=== PATIENT | male | born 1955 | race Caucasian/White ===

== ENCOUNTER 2017-07-13 12:12 | Inpatient (IN) ==
[2017-07-13] MEDS ORDERED: NITROGLYCERIN SL 0.4 MG TABLET SL PRN (12:47)
[2017-07-13] MEDS ORDERED: ALBUTEROL 2.5 MG/3 ML NEB RESP TX ONE (12:57)
[2017-07-13] MEDS: ALBUTEROL 2.5 MG/3 ML NEB RESP TX SCH (13:00)
[2017-07-13] MEDS ORDERED: niCARdipine INJ 25 MG in SODIUM CHLORIDE 0.9% 240 ML IV SCH (13:00)
[2017-07-13] MEDS ORDERED: hydrALAZINE 20 MG/1 ML VIAL IV STA (13:16)
[2017-07-13] MEDS ORDERED: hydrALAZINE 20 MG/1 ML VIAL ONE (13:19)
[2017-07-13 13:41] LABS: Basophils # 0.1 10*3/uL (0.0-0.2); Basophils % 0.7 % (0.0-0.8); Eosinophils # 0.1 10*3/uL (0.0-0.87); Eosinophils % 1.2 % (0.00-10.9); Hematocrit 39.4 VOL% (42.0-52.0); Hemoglobin 13.6 GM/DL (14.0-18.0); Immature Granulocytes % 1.8 %; Lymphocytes % 27.3 % (21.2-54.2); Mean Corpuscular HGB Conc 34.5 GM/DL (32-36); Mean Corpuscular Hemoglobin 31 PG (27-34); Mean Corpuscular Volume 89.1 FL (87-102); Mean Platelet Volume 9.1 FL (9.6-12.0); Monocytes # 1.2 10*3/uL (0.11-0.8); Monocytes % 11.1 % (1.7-12.7); Neutrophils # 6.3 10*3/uL (1.4-7.4); Neutrophils % 57.9 % (38.7-73.9); Platelet Count 268 T/CUMM (130-400); Red Blood Count 4.42 MC/CUMM (3.8-5.5); Red Cell Distribution Width 13.8 % (9.3-17.3); White Blood Count 10.8 T/CUMM (4-12)
--- NOTE | 2017-07-13 13:54 | XRay Report ---
XR chest 1V portable Indication: Shortness of breath Comparison: 16 October 2013 Findings: The heart and mediastinum are normal in size and configuration. The pulmonary vascularity is normal in caliber. No lung infiltrates, effusions, pneumothorax or other abnormality is demonstrated. Impression: Normal chest x-ray PROCEDURE INTERPRETED AT [facility] DEPARTMENT OF RADIOLOGY Final Report Signed by: Dr. Alfie Santana
[2017-07-13 14:04] LABS: Apearance,Urine CLEAR (Clear); Bilirubin,Urine Negative (Negative); Blood, Urine Negative (Negative); Glucose,Urine (UA) Negative (Negative); Ketones,Urine Negative (Negative); Mucus,Urine Occasional /LPF (Occasional); Nitrite,Urine Negative (Negative); Protein,Urine Negative; RBC,Urine <1 /HPF (0-4); Urine Color Yellow (Yellow); Urine Specific Gravity 1.006 (1.001-1.035); Urine Urobilinogen < 2.0 EU/DL (0.2-1.0); WBC,Urine <1 /HPF (0-6)
[2017-07-13 14:12] LABS: Alanine Aminotransferase 34 U/L (16-61); Albumin 3.6 G/DL (3.4-5.0); Alkaline Phosphatase 116 U/L (45-117); Aspartate Amino Transferase 29 U/L (0-37); Blood Urea Nitrogen 16 MG/DL (7-18); Calcium 9.5 MG/DL (8.5-10.1); Glucose 111 MG/DL (74-106); Osmolality,Calculated 278.5 MOS/KG (273-304); Potassium 4.5 MMOL/L (3.5-5.1); Sodium 139 MMOL/L (136-145); Troponin I Only < 0.015 NG/ML (0.00-0.045)
[2017-07-13] MEDS ORDERED: ZALEPLON 5 MG CAPSULE PO PRN (15:12)
[2017-07-13] MEDS ORDERED: MORPHINE 2 MG/1 ML SYRINGE IV PRN (15:12)
[2017-07-13] MEDS ORDERED: MAGNESIUM SULF RIDER 2 GM in PREMIX 1 EACH IV PRN (15:12)
[2017-07-13] MEDS ORDERED: ONDANSETRON 4 MG/2 ML VIAL IV PRN (15:12)
[2017-07-13] MEDS ORDERED: MAGNESIUM SULF RIDER 4 GM in PREMIX 1 EACH IV PRN (15:12)
[2017-07-13] MEDS ORDERED: POTASSIUM CHLORIDE 20 MEQ TABLET PO PRN (15:12)
--- NOTE | 2017-07-13 15:12 | Emergency Department Note ---
Manjit Flores Jessica J, am scribing for, and in the presence of, Osmar Love MD 12:50. Ivan Flores Doug C, MD, personally performed the services described in this documentation, ascribed by Lea Saravia in my presence, and it is both accurate and complete . Arrival - Arrival Chief Complaint: Shortness of Breath Stated Complaint: can't breathe ED Nursing Triage Note: chest pressure and SOB onset x 1 week - pt states that he has a HX of COPD Mode of Arrival: Ambulatory Source: Patient, Family, Old Records Reviewed, RN Notes Reviewed Time Seen by Provider: 07/13/17 12:45 - History of Present Illness HPI Narrative: Patient is a 59 white male presents emergency room complaining of chest pressure is been present off and on for the last week. Patient states it feels like an elephant is sitting on his chest and it finally got bad enough to come to the hospital today. States pain radiates to his left shoulder he does have shortness of breath with it but he states he always has shortness of breath. He does have previous history of atrial fibrillation and had cardioversion about 3 or 4 years ago. He denies any history of coronary artery disease but he certainly has peripheral vascular disease and has had fairly recent stenting of both lower extremities. Patient was noted to have extremely high blood pressure on arrival to the emergency room but he denies headache, nausea vomiting or diaphoresis. He still smokes 2 packs cigarettes a day. Onset (ago): week(s) Consistency: constant Severity: moderate Severity scale (1-10): 6 Quality: other (pressure) Allergies/Adverse Reactions: Allergies Allergy/AdvReac Type Severity Reaction Status Date / Time codeine Allergy Unknown Unknown/Unable Verified 04/24/15 15:59 to obtain Home Medications: Home Medications Medication Instructions Recorded Confirmed Type Albuterol Sulfate [Ventolin HFA] 2 puff INH Q4H PRN 04/24/15 07/13/17 History Budesonide/Formoterol 160-4.5 2 puff INH QAM 04/24/15 07/13/17 History [Symbicort 160-4.5] Metformin HCl 500 mg PO BID 04/24/15 07/13/17 History Montelukast Sodium 10 mg PO QAM 04/24/15 07/13/17 History Pantoprazole Tab [Protonix Tab] 40 mg PO QAM 04/24/15 07/13/17 History Theophylline ER Tab 200 mg PO QAM 04/24/15 07/13/17 History dilTIAZem HCl [Diltiazem ER] 180 mg PO QAM 04/24/15 07/13/17 History Albuterol Neb [Proventil Neb] 2.5 mg RESP [place] Q4H PRN 07/13/17 07/13/17 History Atorvastatin [Lipitor] 20 mg PO QAM 07/13/17 07/13/17 History Carvedilol [Coreg] 6.25 mg PO QAM 07/13/17 07/13/17 History Clopidogrel [Plavix] 75 mg PO QAM 07/13/17 07/13/17 History Digoxin 125 mcg PO QAM 07/13/17 07/13/17 History Febuxostat [Uloric] 80 mg PO QAM 07/13/17 07/13/17 History Magnesium Oxide [Magox 400] 400 mg PO TID 07/13/17 07/13/17 History guaiFENesin [Guaifenesin] 200 mg PO QAM 07/13/17 07/13/17 History Review of System - Review of System 12 point system: reviewed and no additional remarkable complaints except as stated - Review of System Constitutional: Absent: chills, diaphoresis, fever, weakness Eyes: Absent: vision change Head/Ears/Nose/Throat: Absent: nasal drainage Respiratory: Present: cough, respiratory distress, wheezing Cardiovascular: Present: chest pain (describing as pressure) Gastrointestinal: Absent: abdominal pain, nausea, vomiting, diarrhea Genitourinary male: Absent: urgency, hematuria Musculoskeletal: Present: back pain (pain under left shoulder blade). Absent: arm pain, lower back pain, leg pain, neck pain Skin: Absent: rash Neurological: Absent: headache, weakness, numbness Psychiatric: Absent: anxiety Hematological/Lymphatic: Absent: easy bleeding, easy bruising Medical,Surgical,& Family Hx - Medical History Cardio: History of: Cardiac Dysrhythmia (IRREGULAR RATE), Hypertension HEENT: History of: Eye Problem (GLASSES/CATARACTS) Endocrine: History of: Diabetes Mellitus (NIDDM), Dyslipidemia Respiratory: History of: Bronchitis, COPD (ON RESP [place]), Pneumonia, Respiratory Problems (FLU VAC FALL 2013/PNEUM VAC 2012) Gastrointestinal: History of: GERD Musculoskeletal: History of: Back/Neck Problems, Musculoskeletal Problems Other: History of: Cancer (MULTIPLE SKIN CANCERS) - Surgical History HEENT Surgeries: Surgical HX of: Eye Surgery (FOR CATARCT RT 04/25/15) Abdominal Surgeries: Surgical HX of: Appendectomy Orthopedic Surgeries: Surgical HX of;: Orthopedic Surgery (RT/LT RCR 2004/2009) , Spinal Surgery (NECK SURGERY X3 WITH METAL PLATE) - Family History Family History: Reports;: Family Hypertension (MOTHER), Family Stroke (MOTHER) - Social History Smoking Status: Current every day smoker Frequency of Alcohol Use: None Type of Drug Use: None Exam Vital Signs: Vital Signs Temperature 97.7 F 07/13/17 12:24 Pulse Rate 63 07/13/17 14:30 Respiratory Rate 18 07/13/17 14:30 Blood Pressure 170/75 07/13/17 14:30 O2 Sat by Pulse Oximetry 97 07/13/17 14:30 - General General appearance: alert, in no apparent distress - Head Head exam: Present: atraumatic, normocephalic - Eye Eye exam: Present: normal appearance, PERRL, EOMI - ENT ENT exam: Present: normal exam, normal oropharynx, mucous membranes moist. Absent: mucous membranes dry - Neck Neck exam: Present: normal inspection, full ROM, trachea midline - Chest Chest inspection: Present: normal inspection, symmetric chest wall rise - Respiratory Respiratory exam: Present: wheezes - Cardiovascular Cardiovascular exam: Present: regular rate, normal rhythm, normal heart sounds - Abdominal Exam Abdominal exam: Present: soft. Absent: distention, tenderness, bruit - Extremities Exam Extremities exam: Present: normal inspection, full ROM - Back Exam Back exam: Present: normal inspection, full ROM. Absent: tenderness - Neurological Exam Neurological exam: Present: alert, oriented X3, CN II-XII intact - Psychiatric Psychiatric exam: Present: normal affect, normal mood - Skin Skin exam: Present: warm, dry, intact, normal color Course Course Narrative: Patient's clinical presentation, laboratory and radiograph findings were discussed with Dr. Peter Mensah. Patient will be admitted to the telemetry unit and they will evaluate for probable left heart catheterization. Results - Labs CBC & BMP: 07/13/17 13:05 07/13/17 13:05 Lab Results: I have reviewed the patients labs Labs: Laboratory Tests 07/13/17 13:05 WBC 10.8 RBC 4.42 Hgb 13.6 L Hct 39.4 L Plt Count 268 MPV 9.1 L Millard # (Auto) 1.2 H Laboratory Tests 07/13/17 07/13/17 13:05 13:56 Sodium 139 Potassium 4.5 Chloride 105 Carbon Dioxide 28 BUN 16 Creatinine 1.00 GFR Calculation 90 Glucose 111 H Troponin I < 0.015 Albumin/Globulin Ratio 1.0 L Urine pH 6.0 Ur Specific [place] 1.006 Urine Urobilinogen < 2.0 H Urine RBC <1 Urine WBC <1 Laboratory Tests 07/13/17 13:05 B-Natriuretic Peptide 7 - EKG EKG results: interpreted by ERMPascual, sinus rhythm (69 bpm) - Impressions Patient is noted to have coving of the ST segment inferolateral leads probably related to digoxin. - Diagnostic Findings Procedure: Chest x-ray: report reviewed by me (Normal chest x-ray) Disposition Clinical Impression: Chest pain Case discussed with: patient, patient's family Disposition: Still a Patient Condition: Guarded Time of Disposition: 15:11
[2017-07-13] MEDS ORDERED: INFLUENZA VIRUS VACCINE 0.5 ML SYRINGE IM ONE (16:56)
[2017-07-13 17:29] LABS: Troponin I Only < 0.015 NG/ML (0.00-0.045)
[2017-07-13] MEDS: SODIUM CHLORIDE 0.45% 1,000 ML IV SCH (17:29)
--- NOTE | 2017-07-13 18:31 | Cardiology History & Physical ---
Assessment and Plan (1) COPD exacerbation Status: Acute Assessment and plan: Chronic lung disease and COPD now what really assessment exacerbation of COPD. Current Visit: Yes (2) Labile hypertension Status: Acute Assessment and plan: This is been a chronic problem. We will try slowly adjust his medications as it is questionable whether or not he has had some issues with losartan at a bigger dosing. Since this seem to at least were performed using a very low dose of losartan. Also use of as needed clonidine and then adjust his medications as needed. Current Visit: Yes (3) Heavy smoker Status: Chronic Assessment and plan: This is a chronic issue and unfortunately that exacerbates all of his other medical problems. Current Visit: Yes (4) Paroxysmal atrial fibrillation Status: Chronic Assessment and plan: No recent issue and is in sinus rhythm at the time. Current Visit: Yes (5) Claudication Status: Chronic Assessment and plan: Stable chronic issue. Probably has PID. Current Visit: Yes (6) Chest pain Status: Chronic Assessment and plan: His chest pain at this time seems to be more like a respiratory issue. Current Visit: Yes (7) Diabetes mellitus Status: Chronic Assessment and plan: Placed on sliding scale insulin continue his metformin at the time. 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 Potts is a 61 year old male who presented to the emergency room today mainly complaining of progressive shortness of breath recently. He says with this shortness of breath exacerbations have a little chest fullness heaviness. He was during the emergent have severely elevated blood pressure but he has had somewhat labile hypertension as an outpatient with difficulty controlling it. He states that losartan he thinks made his blood pressure dropped too much. He has had similar symptomatology when he had exacerbations of his lung issues. He uses bronchodilators and form of inhaler and nebulized therapy at home. He is followed by Dr. Rivera for his lungs. He has not had no prior history of coronary artery disease microinfarction. He denies any syncope or near syncope. He has had a echocardiogram carried out in the office February of this year with an ejection fraction 65% and some diastolic dysfunction and left ventricular hypertrophy. Has some mild mitral regurgitation tricuspid valve regurgitation and no gross evidence for elevated right-sided pressures. His ECG here reveals sinus rhythm with ST-T abnormalities inferior laterally which is similar to what he has had in the office previously. His troponin is nondetectable. Patient admitted via the emergency room for evaluation. This patient may indeed come to cardiac catheterization but I think our first thrust needs to be treatment of his hypertension and his lung issue before any catheterization is contemplated. Home Medications Medication Instructions Recorded Confirmed Type Albuterol Sulfate [Ventolin HFA] 2 puff INH Q4H PRN 04/24/15 07/13/17 History Budesonide/Formoterol 160-4.5 2 puff INH QAM 04/24/15 07/13/17 History [Symbicort 160-4.5] Metformin HCl 500 mg PO DAILY 04/24/15 07/13/17 History Montelukast Sodium 10 mg PO QAM 04/24/15 07/13/17 History Pantoprazole Tab [Protonix Tab] 40 mg PO QAM 04/24/15 07/13/17 History Theophylline ER Tab 200 mg PO QAM 04/24/15 07/13/17 History dilTIAZem HCl [Diltiazem ER] 180 mg PO QAM 04/24/15 07/13/17 History Albuterol Neb [Proventil Neb] 2.5 mg RESP [place] Q4H PRN 07/13/17 07/13/17 History Atorvastatin [Lipitor] 20 mg PO QAM 07/13/17 07/13/17 History Carvedilol [Coreg] 6.25 mg PO QAM 07/13/17 07/13/17 History Clopidogrel [Plavix] 75 mg PO QAM 07/13/17 07/13/17 History Digoxin 125 mcg PO QAM 07/13/17 07/13/17 History Febuxostat [Uloric] 80 mg PO QAM 07/13/17 07/13/17 History Magnesium Oxide [Magox 400] 400 mg PO DAILY 07/13/17 07/13/17 History guaiFENesin [Guaifenesin] 200 mg PO QAM 07/13/17 07/13/17 History Allergies Allergy/AdvReac Type Severity Reaction Status Date / Time codeine Allergy Unknown Unknown/Unable Verified 04/24/15 15:59 to obtain Review of systems: Constitutional: Denies anorexia, chills, fatigue, fever, frequent falls, night sweats, weight gain, weight loss Eyes: Denies visual changes or loss of vision Ears: Denies decreased hearing, vertigo Nose, mouth and throat: Denies dysphagia, epistaxis, headaches, neck pain, tongue swelling, Neck: Denies thyromegaly or masses. No stiffness. Cardiovascular: as per HPI Respiratory: He is a chronic heavy smoker and has had recent dyspnea dyspnea on exertion coughing congestion. He has had exacerbations of COPD previously. Gastrointestinal: Denies abdominal pain, constipation, dyspepsia, dysphagia, hematemesis, hematochezia, melena, nausea, vomiting Genitourinary: Denies dysuria, hematuria, nocturia Musculoskeletal: Denies arthralgias, joint swelling, muscle weakness, myalgias Neurological: denies abnormal gait, abnormal speech, confusion, convulsions, frequent falls, headaches, memory loss, syncope Psychiatric: Denies anxiety, confusion, depression Endocrine: Denies cold intolerance, fatigue, heat intolerance Hematologic/Lymphatic: Denies easy bleeding, easy bruising Dermatologic: Denies Rash, itching, shingles but has a lot of chronic solar skin changes and has stitches in his right forearm where he has had skin cancers already removed. Medical,Surgical,& Family Hx - Medical History Cardio: History of: Cardiac Dysrhythmia (IRREGULAR RATE), Hypertension HEENT: History of: Eye Problem (GLASSES/CATARACTS) Endocrine: History of: Diabetes Mellitus (NIDDM), Dyslipidemia Respiratory: History of: Bronchitis, COPD (ON RESP [place]), Pneumonia, Respiratory Problems (FLU VAC FALL 2013/PNEUM VAC 2012) Gastrointestinal: History of: GERD Musculoskeletal: History of: Back/Neck Problems, Musculoskeletal Problems Other: History of: Cancer (MULTIPLE SKIN CANCERS) - Surgical History Cardiac Surgeries: Patient Denies: Cardiac Catheterization HEENT Surgeries: Surgical HX of: Eye Surgery (FOR CATARCT RT 04/25/15) Abdominal Surgeries: Surgical HX of: Appendectomy Orthopedic Surgeries: Surgical HX of;: Orthopedic Surgery (RT/LT RCR 2004/2009) , Spinal Surgery (NECK SURGERY X3 WITH METAL PLATE) - Family History Family History: Reports;: Family Hypertension (MOTHER), Family Stroke (MOTHER) - Social History Smoking Status: Current every day smoker Have you smoked in the last 12 months: Yes Time spent discussing smoking cessation with patient: 3 to 10 minutes Frequency of Alcohol Use: Frequently Type of Drug Use: None Marital Status: Lives With:: Spouse Functional capacity: independent ambulation Cardiology Physical Exam - Constitutional Vitals: Vital Signs Temp Pulse Resp BP Pulse Ox 97.2 F L 73 18 179/77 95 07/13/17 16:57 07/13/17 16:57 07/13/17 16:57 07/13/17 16:57 07/13/17 17:13 Intake and Output 07/13/17 07/13/17 07/13/17 07:59 15:59 23:59 Other: Weight 79.832 kg 79.379 kg Patient Weight 07/13/17 23:59 Weight 79.379 kg Exam: General appearance: normal weight, no acute distress Head exam: normal inspection, atraumatic Eye exam: Pupils are equal and reactive. EOMI. There is no trauma. Ear exam: Anatomically normal. Normal auditory acuity to conversation. Oral exam: No significant oral lesions. Neck exam: normal inspection no JVD. No carotid bruit. Trachea is in midline. Respiratory exam: Patient distending the room has audible wheezing. Auscultation is diffuse coarse wheezing rhonchi. Cardiovascular exam: Distant heart sounds but regular rate and rhythm, no murmur or gallop or rub. No precordial lift. No bruits over the major arteries. Chest wall/torso: Anatomically normal. No tenderness, deformity Peripheral Pulses: 2+ radial pulses with diminished foot pulses. GI/Abdominal exam: normal bowel sounds, soft and nontender, no abdominal bruits or pulsatile masses. Musculoskeletal/Extremities exam: normal inspection without edema or cyanosis. No deformities or trauma. Neurological exam: alert, oriented X3. There is no gross neurologic deficits. Psychiatric exam: normal affect, normal mood. Cognitive function is grossly intact. Skin exam: Patient has some chronic solar skin changes. He has stitches in his right arm from skin cancer removed recently. Result/EKG - Labs CBC & BMP: 07/13/17 13:05 07/13/17 13:05 Lab Results: I have reviewed the past 24 hour labs Labs: Laboratory Results - last 24 hr 07/13/17 07/13/17 07/13/17 13:05 13:05 13:05 WBC 10.8 RBC 4.42 Hgb 13.6 L Hct 39.4 L MCV 89.1 MCH 31 MCHC 34.5 RDW 13.8 Plt Count 268 MPV 9.1 L Neut % (Auto) 57.9 Lymph % (Auto) 27.3 Sumner % (Auto) 11.1 Eos % (Auto) 1.2 Baso % (Auto) 0.7 Neut # (Auto) 6.3 Lymph # (Auto) 3.0 [place]ner # (Auto) 1.2 H Eos # (Auto) 0.1 Baso # (Auto) 0.1 Immature Gran % 1.8 Nucleated RBC % 0.0 Immature Gran # 0.20 Nucleated RBCs # 0.00 Immature Plt Fraction 0.0 Sodium 139 Potassium 4.5 Chloride 105 Carbon Dioxide 28 Anion Gap 10.5 BUN 16 Creatinine 1.00 GFR Calculation 90 BUN/Creatinine Ratio 16.00 Glucose 111 H Calculated Osmolality 278.5 Calcium 9.5 Total Bilirubin 0.60 AST 29 ALT 34 Alkaline Phosphatase 116 Total Creatine Kinase CK-MB (CK-2) Troponin I < 0.015 B-Natriuretic Peptide 7 Total Protein 7.0 Albumin 3.6 Globulin 3.4 Albumin/Globulin Ratio 1.0 L Urine Color Urine Appearance Urine pH Ur Specific [place] Urine Protein Urine Glucose (UA) Urine Ketones Urine Blood Urine Nitrate Urine Bilirubin Urine Urobilinogen Urine Leukocytes Urine RBC Urine WBC Urine Mucus Ur Culture Indicated? 07/13/17 07/13/17 13:56 16:50 WBC RBC Hgb Hct MCV MCH MCHC RDW Plt Count MPV Neut % (Auto) Lymph % (Auto) [place] % (Auto) Eos % (Auto) Baso % (Auto) Neut # (Auto) Lymph # (Auto) [place] # (Auto) Eos # (Auto) Baso # (Auto) Immature Gran % Nucleated RBC % Immature Gran # Nucleated RBCs # Immature Plt Fraction Sodium Potassium Chloride Carbon Dioxide Anion Gap BUN Creatinine GFR Calculation BUN/Creatinine Ratio Glucose Calculated Osmolality Calcium Total Bilirubin AST ALT Alkaline Phosphatase Total Creatine Kinase 69 CK-MB (CK-2) < 1.0 Troponin I < 0.015 B-Natriuretic Peptide Total Protein Albumin Globulin Albumin/Globulin Ratio Urine Color Yellow Urine Appearance Clear Urine pH 6.0 Ur Specific [place] 1.006 Urine Protein Negative Urine Glucose (UA) Negative Urine Ketones Negative Urine Blood Negative Urine Nitrate Negative Urine Bilirubin Negative Urine Urobilinogen < 2.0 H Urine Leukocytes Negative Urine RBC <1 Urine WBC <1 Urine Mucus Occasional Ur Culture Indicated? Not indicated - Impressions Impressions: ECG was sinus rhythm with lateral ST abnormalities consistent with possible ischemia but they are unchanged from prior ECGs. There is no acute changes.
[2017-07-13] MEDS ORDERED: DEXTROSE 50% 25 GM/50 ML SYRINGE IV PRN (18:40)
[2017-07-13] MEDS ORDERED: GLUCAGON 1 MG VIAL IM PRN (18:40)
[2017-07-13] MEDS ORDERED: methylPREDNISolone SOD SUC 125 MG/2 ML VIAL IV ONE (18:44)
[2017-07-13] MEDS ORDERED: ALBUTEROL 2.5 MG/3 ML NEB RESP TX PRN (19:00)
[2017-07-13] MEDS: LEVALBUTEROL 1.25 MG/3 ML NEB RESP TX SCH ×2 (19:04→22:53)
[2017-07-13] MEDS ORDERED: MAGNESIUM OXIDE 400 MG TABLET PO SCH (21:00)
[2017-07-13] MEDS ORDERED: CARVEDILOL 6.25 MG TABLET PO SCH (21:00)
[2017-07-13 21:03] LABS: Troponin I Only < 0.015 NG/ML (0.00-0.045)
[2017-07-13] MEDS: INSULIN REGULAR 100 UNIT/ML SUBCUT SCH (21:10)
[2017-07-13] MEDS: ROSUVASTATIN 20 MG TABLET PO SCH (21:10)
[2017-07-13] MEDS: LEVOFLOXACIN INJ 500 MG in PREMIX 1 EACH IV SCH (21:24)
--- NOTE | 2017-07-13 22:30 | Order Completion Report ---
See report scanned to EMR
[2017-07-13 23:58] LABS: Troponin I Only < 0.015 NG/ML (0.00-0.045)
[2017-07-14] MEDS: LEVALBUTEROL 1.25 MG/3 ML NEB RESP TX SCH ×6 (02:54→23:38)
[2017-07-14] MEDS: SODIUM CHLORIDE 0.45% 1,000 ML IV SCH ×3 (05:24→19:57)
[2017-07-14] MEDS: cloNIDine 0.1 MG TABLET PO PRN ×3 (05:54→20:24)
[2017-07-14 06:35] LABS: Calcium 9.2 MG/DL (8.5-10.1); Osmolality,Calculated 287.5 MOS/KG (273-304); Potassium 4.3 MMOL/L (3.5-5.1)
--- NOTE | 2017-07-14 07:06 | Order Completion Report ---
See report scanned to EMR
[2017-07-14] MEDS ORDERED: DIGOXIN 0.125 MG TABLET PO SCH (09:00)
[2017-07-14] MEDS: DILTIAZEM CD 180 MG CAPSULE PO SCH (09:07)
[2017-07-14] MEDS: ASPIRIN EC 325 MG TABLET PO SCH (09:07)
[2017-07-14] MEDS: INSULIN REGULAR 100 UNIT/ML SUBCUT SCH ×4 (09:08→20:24)
[2017-07-14] MEDS: METOPROLOL SUCCINATE XL 25 MG TABLET PO SCH (09:08)
[2017-07-14] MEDS: BUDESONIDE/FORMOTEROL 160-4.5 INHALER 6 GM INH SCH (09:10)
--- NOTE | 2017-07-14 09:34 | Order Completion Report ---
See report scanned to EMR
--- NOTE | 2017-07-14 11:58 | Pulmonology Consult Note ---
History of Present Illness Chief complaint: COPD with acute exacerbation. Pulmonary nodule. History of present illness: Main Ghosh, [facility], acting as scribe for Dr. Riccardo Ryan Mr. Potts is a 61-year-old white male who we have been asked to see in pulmonary consultation for evaluation and treatment. The request for consultation was made by Dr. Mensah. Mr. Potts was in his usual state of health until approximately the past week. At that time he had acute onset "chest pressure" that has been waxing and waning during that time. Yesterday, the patient presented to [facility] the same complaints with increased shortness of breath and dyspnea on exertion. He stated it "felt like an elephant sitting on my chest". He states that this is how is just always feels when he is in a COPD exacerbation, but he was also noted to be markedly hypertensive with a blood pressure of 248/119. There was some question as to whether or not he was experiencing cardiac angina, so he was therefore admitted to the cardiology service. He was seen today along with his . He does report increased shortness of breath and dyspnea on exertion as above. He reports a "fullness" in his chest that worsens with exertion, but he cannot definitely say that this is cardiac pain. He denies dysphasia or reflux. There is been no change in bowel or bladder habits. No TIA symptoms or syncope. No bleeding from any site, specifically no hemoptysis. He does have a known pulmonary nodule that was seen on CT scan in February 2017 and he is actually scheduled for follow-up CT of the chest 07/26/2017. All other systems were reviewed and were negative. Allergies: Codeine. Possibly Bactrim DS. Home medications: See list Immunizations: Flu vaccine was given 08/26/2016. Pneumovax was given 2011. H1N1 was given in 2009. Past medical history: October 2013 [facility] hospitalization for right middle lung pneumonia. [facility] hospitalization 09/09/2011 for right lower lung bacterial pneumonia. Multi lobar pneumonia. COPD. Bronchospastic disease. Gout. Hyperlipidemia. The patient has had 2 neck surgeries and hernia repair. Diabetes mellitus. The patient had bypass to both legs in July [address] [place] [address] Stone. 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 On 03/01/2016 he said he smoked 1-2 packs of cigarettes per day. Today, he states this is still been true but "I apparently quit yesterday". In the past he has stated that he drinks 4-5 ounces of gin and Cokes per day. He is . He has 5 children, two by his present , and he has 2 grandchildren. Family history: Positive for high blood pressure Procedures: E scope with Dr. Lim 09/18/2011 which showed 99% healing of a giant gastric ulcer. The scope 08/07/[address] Lim which showed 2 large gastric ulcers with vascular bleeding. February [address] Almaguer showed an EF of 65%, some diastolic dysfunction, and left ventricular hypertrophy. There was also mild mitral regurgitation, tricuspid valve regurgitation, but no gross evidence of elevated right-sided pressures. Laboratory: White count is 10,800 with 57.9% segs, 27.3% lymphs, 11.1% monos; H& H 13.6/39.4 with normal indices and normal red blood cell distribution width; platelet count 268,000; creatinine initially 1.00 and now 1.10, BUN 22, sodium 139, potassium 4.3, calcium 9.2, albumin 3.6, total protein 7.0; BNP 7; cardiac isoenzymes are negative; liver function test are normal; urinalysis showed no evidence of infection Chest x-ray. Done 07/13/2017. My interpretation. Heart size is normal. Pulmonary artery size is normal. The mediastinum is not enlarged. There is no hilar adenopathy. Lung morillo are clear without masses, infiltrates, or pulmonary edema. Home Medications Medication Instructions Recorded Confirmed Type Albuterol Sulfate [Ventolin HFA] 2 puff INH Q4H PRN 04/24/15 07/13/17 History Budesonide/Formoterol 160-4.5 2 puff INH QAM 04/24/15 07/13/17 History [Symbicort 160-4.5] Metformin HCl 500 mg PO DAILY 04/24/15 07/13/17 History Montelukast Sodium 10 mg PO QAM 04/24/15 07/13/17 History Pantoprazole Tab [Protonix Tab] 40 mg PO QAM 04/24/15 07/13/17 History Theophylline ER Tab 200 mg PO QAM 04/24/15 07/13/17 History dilTIAZem HCl [Diltiazem ER] 180 mg PO QAM 04/24/15 07/13/17 History Albuterol Neb [Proventil Neb] 2.5 mg RESP TX Q4H PRN 07/13/17 07/13/17 History Atorvastatin [Lipitor] 20 mg PO QAM 07/13/17 07/13/17 History Carvedilol [Coreg] 6.25 mg PO QAM 07/13/17 07/13/17 History Clopidogrel [Plavix] 75 mg PO QAM 07/13/17 07/13/17 History Digoxin 125 mcg PO QAM 07/13/17 07/13/17 History Febuxostat [Uloric] 80 mg PO QAM 07/13/17 07/13/17 History Magnesium Oxide [Magox 400] 400 mg PO DAILY 07/13/17 07/13/17 History guaiFENesin [Guaifenesin] 200 mg PO QAM 07/13/17 07/13/17 History Allergies Allergy/AdvReac Type Severity Reaction Status Date / Time codeine Allergy Unknown Unknown/Unable Verified 04/24/15 15:59 to obtain Exam (Pulmonay) H&P - Constitutional Vitals: Period Temp Pulse Resp BP Sys/Bass Pulse Ox Last 24 Hr 97.2 F-98.2 F 61-96 13-20 162-248/75-119 93-100 Exam: Psych: Oriented x 3; a pleasant and cooperative patient HEENT: Pupils, irises, sclera, conjunctiva, and eyelids are normal. The face is symmetrical without rash or masses. Lips, tongue, buccal mucosa, soft and hard palates, and pharynx are WNL Neck: Symmetrical. Thyroid was not palpated. Lymphatics: No submandibular, cervical, or supraclavicular adenopathy Chest: Symmetrical with large airway and high-pitched peripheral wheezes and associated large airway congestion CV: Regular without murmur, rub, or gallop Arterial: Carotids with a good upstroke. There is no bruit. Upper extremity pulses are palpable. Lower extremity pulses are non-palpable, but I see no evidence of ischemia. Venous: Exam of the neck, upper, and lower extremities is normal Abd: No appreciable organomegaly, masses, tenderness, or bruit; Bowel sounds are positive 4; The aorta was not palpated /Rectal: Deferred Extremities: No clubbing, cyanosis, edema, or obvious DVT Skin: No cancerous or infectious lesions of the exposed, examined skin; the perineal area was not examined M/S: Age appropriate loss of the normal curvature of the cervical, thoracic, and lumbar spine; previous shoulder surgery with some mild decreased range of motion in the left shoulder that has gradually gotten better over time Neurological: Cranial nerves are intact, Long tract motor function is intact; Sensory exam was not done; gait was not tested. The remainder of the exam was noncontributory. Impression: #1: Acute exacerbation of COPD. Note, the patient states that his breathing is much improved since admission. #2: COPD/asthma #3: Uncontrolled hypertension #4: Tobacco abuse #5: Hyperlipidemia #6: History of gout #7: Atrial fibrillation #8: Chest pain #9: See past history Plan: #1: We agree with present medications #2: We will proceed with CT of the chest with contrast to reevaluate previously noted pulmonary nodule #3: Check sputum for Gram stain, culture and sensitivity #4: See orders We appreciate this consult and will follow along with you. Medical,Surgical,& Family Hx - Medical History Cardio: History of: Cardiac Dysrhythmia (IRREGULAR RATE), Hypertension HEENT: History of: Eye Problem (GLASSES/CATARACTS) Endocrine: History of: Diabetes Mellitus (NIDDM), Dyslipidemia Respiratory: History of: Bronchitis, COPD (ON RESP [place]), Pneumonia, Respiratory Problems (FLU VAC FALL 2013/PNEUM VAC 2012) Gastrointestinal: History of: GERD Musculoskeletal: History of: Back/Neck Problems, Musculoskeletal Problems Other: History of: Cancer (MULTIPLE SKIN CANCERS) - Surgical History Cardiac Surgeries: Patient Denies: Cardiac Catheterization HEENT Surgeries: Surgical HX of: Eye Surgery (FOR CATARCT RT 04/25/15) Abdominal Surgeries: Surgical HX of: Appendectomy Orthopedic Surgeries: Surgical HX of;: Orthopedic Surgery (RT/LT RCR 2004/2009) , Spinal Surgery (NECK SURGERY X3 WITH METAL PLATE) - Family History Family History: Reports;: Family Hypertension (MOTHER), Family Stroke (MOTHER) - Social History Smoking Status: Current every day smoker Frequency of Alcohol Use: Frequently Type of Drug Use: None Results - Labs CBC & BMP: 07/13/17 13:05 07/14/17 05:28
[2017-07-14] MEDS: FEBUXOSTAT 80 MG TABLET PO SCH (12:33)
[2017-07-14] MEDS: MONTELUKAST 10 MG TABLET PO SCH (12:33)
[2017-07-14] MEDS: MAGNESIUM OXIDE 400 MG TABLET PO SCH (12:33)
[2017-07-14] MEDS: CLOPIDOGREL 75 MG TABLET PO SCH (12:34)
[2017-07-14] MEDS: PANTOPRAZOLE 40 MG TABLET PO SCH (12:34)
[2017-07-14] MEDS: THEOPHYLLINE ER (24 HR) 200 MG CAPSULE PO SCH (12:34)
--- NOTE | 2017-07-14 13:23 | Order Completion Report ---
See report scanned to EMR
--- NOTE | 2017-07-14 14:03 | CT Report ---
Exam: CT chest with intravenous contrast Exam date: 07/14/2017 1:42 PM Clinical History: 61 years,Male, pulmonary nodule, follow-up Technique: Axial computed tomography images of the chest with intravenous contrast. The CT exam was performed using one or more of the following dose reduction techniques: Automated exposure control, adjustment of the mA and/or kV according to patient size, or use of iterative reconstruction technique. Contrast: 100 mL of Omnipaque 350 administered intravenously. Comparison: February 28, 2017 Findings: Lungs: Mild paraseptal bullous changes within the lung apices. Diffuse thickening and volume loss along the right minor fissure. Interval resolution of the patchy parenchymal nodular and groundglass opacities within the right upper and middle lobes.. Pleural spaces: No pneumothorax. No significant effusion Heart: No cardiomegaly. No pericardial effusion Mediastinum: A few prominent right hilar lymph nodes are again noted Bones/joints: Intact. No acute fracture. No dislocation. Soft tissues: Unremarkable Vasculature: Atheromatous changes with irregular mural thrombus involving the arch and proximal descending thoracic aorta, unchanged. Upper abdomen: No acute pathological findings Impression: 1. Essentially clearing of the previously described nodular inflammatory changes involving the right upper and middle lobes. 2. Development of focal thickening and subsegmental atelectasis along right minor fissure. 3. Prominent right hilar lymph nodes, unchanged in overall size and appearance. Given the above findings, Continued 3-6 month follow-up is suggested to ensure stability and/or resolution PROCEDURE INTERPRETED AT [facility] DEPARTMENT OF RADIOLOGY Final Report Signed by: Leatha Alexander MD
--- NOTE | 2017-07-14 19:36 | Cardiology Progress Note ---
Gigi Flores Vanessa, RN, am scribing for, and in the presence of, Hardik Greene MD 19 :36. Assessment and Plan - Time spent with patient Time spent with patient: Greater than 30 minutes Time spent discussing smoking cessation with patient: 3 to 10 minutes (1) Chest pain Status: Chronic Assessment and plan: 61 year old WM, followed by Dr. Almaguer with PMHx severe COPD, active 2 PPD smoker, pulm nodule, DM, PAF, HTN. Routinely followed by Dr. Ryan for pulmonary. He also has severe PAD and is s/p bilateral iliac artery stenting ( [place]), on Plavix. Admitted now with COPD exac after having shortness of breath and wheezing x 1 week. Also had HTN emergency, BP 248/120, with some non- radiating chest pressure, improved now. -Hypertensive emergency, improving. Continue to increase the calcium channel laura. Use of beta-laura may be limited by his severe pulmonary hypertension, increase slowly, as tolerated -History of PAF, he was not anticoagulated previously. Continue antiplatelets. He is at risk for MAT due to his severe lung issues. If this is an issue, increase in the CCB laura may help -Stop digoxin, ejection was preserved, he was severely hypertensive -HLD-continue statin. -Smoking cessation consult Current Visit: Yes (2) COPD exacerbation Status: Acute Assessment and plan: SEE PLAN OF CARE LISTED BELOW. Current Visit: Yes (3) Claudication Status: Chronic Assessment and plan: SEE PLAN OF CARE LISTED BELOW. Current Visit: Yes (4) Diabetes mellitus Status: Chronic Assessment and plan: SEE PLAN OF CARE LISTED BELOW. Current Visit: Yes (5) Heavy smoker Status: Chronic Assessment and plan: SEE PLAN OF CARE LISTED BELOW. Current Visit: Yes (6) Paroxysmal atrial fibrillation Status: Chronic Assessment and plan: SEE PLAN OF CARE LISTED BELOW. Current Visit: Yes Cardiology - PN: Subj Interval history: Insurance Business Analyst: Dr. Almaguer SUMMARY: Mr. Potts, 61 year old WM, PMHx hypertension, paroxysmal atrial fibrillation, severe PAD status post bilateral iliac artery stenting ( intermittent claudication), dyslipidemia, diabetes, and COPD. He is a chronic heavy smoker, and is followed by a booking police officer Dr. Ryan. Admitted to cardiology service on 07/13 with shortness of breath, hypertensive emergency (248/119) and wheezing 1 week. Acute coronary syndrome has been ruled out since admission. Patient is being treated for COPD exacerbation. He also has a history of pulmonary nodules. No prior history of CAD or myocardial infarction. Echocardiogram in February 2017 at [facility] clinic with EF 65%, mild diastolic dysfunction and LVH, mild MR/ TR, no elevated right-sided pressures. July: Patient is awake and alert this afternoon. He is in no acute respiratory distress. His is present with him at bedside. Denies dyspnea today, and he is not having any more chest pain. Reports chest pressure he experienced while in the ED was located along left apical area, nonradiating, and described as an ache which persisted on and off until improvement of BP. Today, SBP 150- 165 mmHg. Telemetry: SR, first-degree AVB, HR 60s. Labs reviewed. Hyperglycemic, 251 but otherwise unremarkable. His cardiac biomarkers have remained normal. Continue to monitor and treat patient for shortness of breath , COPD, uncontrolled hypertension. These are currently stable. Pulmonary consult pending today. ROS: -No chest pain, dizziness, palpitations -No dyspnea -No abd pain, N/V. Good appetite. Exam (Progress Note) - Constitutional Vitals: Period Temp Pulse Resp BP Sys/Bass Pulse Ox Last 24 Hr 97.2 F-98.2 F 61-96 13-20 162-248/75-119 93-100 Exam: General appearance: normal weight, no acute distress Head exam: normal inspection, atraumatic Eye exam: Pupils are equal and reactive. EOMI. There is no trauma. Ear exam: Anatomically normal. Normal auditory acuity to conversation. Oral exam: No significant oral lesions. Neck exam: normal inspection. No JVD. No carotid bruit. Trachea is in midline. Respiratory exam: Expiratory wheeze. Lung sounds coarse throughout. Cardiovascular exam: Distant heart sounds but regular rate and rhythm, no murmur or gallop or rub. No precordial lift. No bruits over the major arteries. Chest wall/torso: Anatomically normal. No tenderness, deformity Peripheral Pulses: 2+ radial pulses with diminished foot pulses. GI/Abdominal exam: normal bowel sounds, soft and nontender, no abdominal bruits or pulsatile masses. Musculoskeletal/Extremities exam: normal inspection without edema or cyanosis. No deformities or trauma. Full ROM. Normal capillary refill Neurological exam: alert, oriented X3. There is no gross neurologic deficits. No tremor. Psychiatric exam: normal affect, normal mood. Cognitive function is grossly intact. Patient does not appear anxious or depressed. Skin exam: chronic solar skin changes. He has stitches in his right arm from skin cancer removed recently. Ecchymotic bruising to bilateral upper extremities Result/EKG - Labs CBC & BMP: 07/13/17 13:05 07/14/17 05:28 Lab Results: I have reviewed the past 24 hour labs Labs: Laboratory Results - last 24 hr 07/13/17 07/13/17 07/13/17 13:05 13:05 13:05 WBC 10.8 RBC 4.42 Hgb 13.6 L Hct 39.4 L MCV 89.1 MCH 31 MCHC 34.5 RDW 13.8 Plt Count 268 MPV 9.1 L Neut % (Auto) 57.9 Lymph % (Auto) 27.3 Norman % (Auto) 11.1 Eos % (Auto) 1.2 Baso % (Auto) 0.7 Neut # (Auto) 6.3 Lymph # (Auto) 3.0 Norman # (Auto) 1.2 H Eos # (Auto) 0.1 Baso # (Auto) 0.1 Immature Gran % 1.8 Nucleated RBC % 0.0 Immature Gran # 0.20 Nucleated RBCs # 0.00 Immature Plt Fraction 0.0 Sodium 139 Potassium 4.5 Chloride 105 Carbon Dioxide 28 Anion Gap 10.5 BUN 16 Creatinine 1.00 GFR Calculation 90 BUN/Creatinine Ratio 16.00 Glucose 111 H POC Glucose Calculated Osmolality 278.5 Calcium 9.5 Total Bilirubin 0.60 AST 29 ALT 34 Alkaline Phosphatase 116 Total Creatine Kinase CK-MB (CK-2) Troponin I < 0.015 B-Natriuretic Peptide 7 Total Protein 7.0 Albumin 3.6 Globulin 3.4 Albumin/Globulin Ratio 1.0 L Urine Color Urine Appearance Urine pH Ur Specific [place] Urine Protein Urine Glucose (UA) Urine Ketones Urine Blood Urine Nitrate Urine Bilirubin Urine Urobilinogen Urine Leukocytes Urine RBC Urine WBC Urine Mucus Ur Culture Indicated? 07/13/17 07/13/17 07/13/17 13:56 16:50 19:58 WBC RBC Hgb Hct MCV MCH MCHC RDW Plt Count MPV Neut % (Auto) Lymph % (Auto) Norman % (Auto) Eos % (Auto) Baso % (Auto) Neut # (Auto) Lymph # (Auto) Norman # (Auto) Eos # (Auto) Baso # (Auto) Immature Gran % Nucleated RBC % Immature Gran # Nucleated RBCs # Immature Plt Fraction Sodium Potassium Chloride Carbon Dioxide Anion Gap BUN Creatinine GFR Calculation BUN/Creatinine Ratio Glucose POC Glucose Calculated Osmolality Calcium Total Bilirubin AST ALT Alkaline Phosphatase Total Creatine Kinase 69 68 CK-MB (CK-2) < 1.0 < 1.0 Troponin I < 0.015 < 0.015 B-Natriuretic Peptide Total Protein Albumin Globulin Albumin/Globulin Ratio Urine Color Yellow Urine Appearance Clear Urine pH 6.0 Ur Specific [place] 1.006 Urine Protein Negative Urine Glucose (UA) Negative Urine Ketones Negative Urine Blood Negative Urine Nitrate Negative Urine Bilirubin Negative Urine Urobilinogen < 2.0 H Urine Leukocytes Negative Urine RBC <1 Urine WBC <1 Urine Mucus Occasional Ur Culture Indicated? Not indicated 07/13/17 07/13/17 07/14/17 21:08 23:16 05:28 WBC RBC Hgb Hct MCV MCH MCHC RDW Plt Count MPV Neut % (Auto) Lymph % (Auto) Norman % (Auto) Eos % (Auto) Baso % (Auto) Neut # (Auto) Lymph # (Auto) Norman # (Auto) Eos # (Auto) Baso # (Auto) Immature Gran % Nucleated RBC % Immature Gran # Nucleated RBCs # Immature Plt Fraction Sodium 139 Potassium 4.3 Chloride 105 Carbon Dioxide 27 Anion Gap 11.3 BUN 22 H Creatinine 1.10 GFR Calculation 80 BUN/Creatinine Ratio 20.00 Glucose 251 H POC Glucose 145 H Calculated Osmolality 287.5 Calcium 9.2 Total Bilirubin AST ALT Alkaline Phosphatase Total Creatine Kinase 58 CK-MB (CK-2) < 1.0 Troponin I < 0.015 B-Natriuretic Peptide Total Protein Albumin Globulin Albumin/Globulin Ratio Urine Color Urine Appearance Urine pH Ur Specific [place] Urine Protein Urine Glucose (UA) Urine Ketones Urine Blood Urine Nitrate Urine Bilirubin Urine Urobilinogen Urine Leukocytes Urine RBC Urine WBC Urine Mucus Ur Culture Indicated? 07/14/17 07/14/17 08:36 11:49 WBC RBC Hgb Hct MCV MCH MCHC RDW Plt Count MPV Neut % (Auto) Lymph % (Auto) Norman % (Auto) Eos % (Auto) Baso % (Auto) Neut # (Auto) Lymph # (Auto) Norman # (Auto) Eos # (Auto) Baso # (Auto) Immature Gran % Nucleated RBC % Immature Gran # Nucleated RBCs # Immature Plt Fraction Sodium Potassium Chloride Carbon Dioxide Anion Gap BUN Creatinine GFR Calculation BUN/Creatinine Ratio Glucose POC Glucose 217 H 215 H Calculated Osmolality Calcium Total Bilirubin AST ALT Alkaline Phosphatase Total Creatine Kinase CK-MB (CK-2) Troponin I B-Natriuretic Peptide Total Protein Albumin Globulin Albumin/Globulin Ratio Urine Color Urine Appearance Urine pH Ur Specific [place] Urine Protein Urine Glucose (UA) Urine Ketones Urine Blood Urine Nitrate Urine Bilirubin Urine Urobilinogen Urine Leukocytes Urine RBC Urine WBC Urine Mucus Ur Culture Indicated? - Diagnostic Findings Procedure: Chest x-ray: image reviewed by me, report reviewed by me, CT - chest : image reviewed by me, report reviewed by me - EKG EKG results: interpreted by me, no acute changes EKG shows: sinus rhythm Jc Flores Attila, MD, personally performed the services described in this documentation, ascribed by Gladys Yu RN in my presence, and it is both accurate and complete 936 .
[2017-07-14] MEDS: LEVOFLOXACIN INJ 500 MG in PREMIX 1 EACH IV SCH (20:24)
[2017-07-14] MEDS: ROSUVASTATIN 20 MG TABLET PO SCH (20:24)
[2017-07-14] MEDS: LOSARTAN 25 MG TABLET PO SCH (20:25)
[2017-07-15] MEDS: LEVALBUTEROL 1.25 MG/3 ML NEB RESP TX SCH ×6 (03:45→22:52)
[2017-07-15 06:47] LABS: Basophils % 0.3 % (0.0-0.8); Eosinophils % 0.1 % (0.00-10.9); Hematocrit 34.2 VOL% (42.0-52.0); Hemoglobin 11.8 GM/DL (14.0-18.0); Immature Granulocytes % 1.4 %; Immature Granulocytes Absolute 0.22 #; Lymphocytes # 2.9 10*3/uL (1.4-4.0); Lymphocytes % 18.3 % (21.2-54.2); Mean Corpuscular HGB Conc 34.5 GM/DL (32-36); Mean Corpuscular Hemoglobin 31 PG (27-34); Mean Corpuscular Volume 89.3 FL (87-102); Mean Platelet Volume 9.4 FL (9.6-12.0); Monocytes # 1.3 10*3/uL (0.11-0.8); Monocytes % 8.3 % (1.7-12.7); Neutrophils # 11.4 10*3/uL (1.4-7.4); Neutrophils % 71.6 % (38.7-73.9); Platelet Count 244 T/CUMM (130-400); Red Blood Count 3.83 MC/CUMM (3.8-5.5); Red Cell Distribution Width 13.6 % (9.3-17.3); White Blood Count 15.9 T/CUMM (4-12)
[2017-07-15 07:11] LABS: Calcium 9.4 MG/DL (8.5-10.1); Magnesium 1.9 MG/DL (1.8-2.4); Osmolality,Calculated 288.3 MOS/KG (273-304); Potassium 3.9 MMOL/L (3.5-5.1)
[2017-07-15 07:18] LABS: Risk Ratio 4.2
[2017-07-15] MEDS: INSULIN REGULAR 100 UNIT/ML SUBCUT SCH ×4 (09:10→20:48)
[2017-07-15] MEDS: BUDESONIDE/FORMOTEROL 160-4.5 INHALER 6 GM INH SCH (09:10)
[2017-07-15] MEDS: MAGNESIUM OXIDE 400 MG TABLET PO SCH (09:11)
[2017-07-15] MEDS: METOPROLOL SUCCINATE XL 25 MG TABLET PO SCH (09:11)
[2017-07-15] MEDS: THEOPHYLLINE ER (24 HR) 200 MG CAPSULE PO SCH (09:11)
[2017-07-15] MEDS: DILTIAZEM CD 180 MG CAPSULE PO SCH (09:11)
[2017-07-15] MEDS: PANTOPRAZOLE 40 MG TABLET PO SCH (09:12)
[2017-07-15] MEDS: MONTELUKAST 10 MG TABLET PO SCH (09:12)
[2017-07-15] MEDS: CLOPIDOGREL 75 MG TABLET PO SCH (09:12)
[2017-07-15] MEDS: LOSARTAN 25 MG TABLET PO SCH (09:12)
[2017-07-15] MEDS: FEBUXOSTAT 80 MG TABLET PO SCH (09:12)
[2017-07-15] MEDS: ASPIRIN EC 325 MG TABLET PO SCH (09:12)
--- NOTE | 2017-07-15 12:38 | Pulmonology Progress Note ---
Pulmonary - PN: Subj Interval history: Main Ghosh, JERRELL-, acting as scribe for Dr. Riccardo Ryna Mr. Potts is a 61-year-old white male who we saw in initial pulmonary consultation 07/14/2017. At that time, our impressions were: #1: Acute exacerbation of COPD. Note, the patient states that his breathing is much improved since admission. #2: COPD/asthma #3: Uncontrolled hypertension #4: Tobacco abuse #5: Hyperlipidemia #6: History of gout #7: Atrial fibrillation #8: Chest pain #9: See past history 07/15/2017. Patient was seen today along with his . He feels his breathing has improved, but on chest exam he continues to have significant large airway and high-pitched peripheral wheezes. He is already on theophylline and Singulair, Malinda start albuterol 2 mg p.o. 3 times daily. He has not had a theophylline level checked this admission, so one will be obtained. He asked about discharge. We told him if his respiratory status improves he could possibly be ready for discharge tomorrow. If he would be discharged today with the amount of wheezes he has he will be coming back for readmission very quickly. CT of the chest 10 07/14/2017 showed central clearing of the previously described nodular inflammatory changes involving the right upper and middle lobes, development of focal thickening and subsegmental atelectasis along the right minor fissure, and prominent right hilar lymph nodes which are unchanged in overall size and appearance when compared to CT done 02/28/2017. Medications have been reviewed. We made no changes today other than the addition of albuterol as above. Labs been reviewed. White count is 15,900 with 71.6% segs; H&H 11.8/34.2; platelet count 244,000; creatinine 1.00, BUN 26, electrolytes were normal; fasting lipoprotein profile shows a total cholesterol 147, LDL 84, HDL 35, and triglycerides 160 Microbiology has been reviewed. Sputum Gram stain showed few gram-positive cocci in pairs, chains and clusters. Sputum culture is growing "normal cindy" at 12 hours. Exam (Progress Note) - Constitutional Vitals: Period Temp Pulse Resp BP Sys/Bass Pulse Ox Last 24 Hr 97.4 F-98.0 F 60-79 16-20 146-168/68-76 91-99 Exam: Chest... See above Heart no gallop Abdomen is nontender and nondistended; bowel sounds positive 4 Extremities with nothing to suggest acute deep venous thrombophlebitis Psychiatric oriented 3 Neurologic long-term motor function is intact Plan: Theophylline level today. Start albuterol 2 mg p.o. 3 times daily. Continue other present treatment. Again, if the patient's respiratory status markedly improves he could possibly be ready for discharge tomorrow as discussed with him and his . See orders. Results - Labs CBC & BMP: 07/15/17 05:22 07/15/17 05:22
[2017-07-15] MEDS: ALBUTEROL 2 MG TABLET PO SCH ×2 (13:42→21:01)
--- NOTE | 2017-07-15 17:08 | Order Completion Report ---
See report scanned to EMR
[2017-07-15] MEDS: cloNIDine 0.1 MG TABLET PO PRN ×2 (17:57→20:55)
--- NOTE | 2017-07-15 18:31 | Cardiology Progress Note ---
Gigi Flores Vanessa RN, am scribing for, and in the presence of, Hardik Greene MD 18 :31. Assessment and Plan - Time spent with patient Time spent with patient: Greater than 30 minutes (1) Chest pain Status: Chronic Assessment and plan: 61 year old WM, followed in the past by Dr. Almaguer with PMHx severe COPD, active 2 PPD smoker, pulm nodule, DM, PAF, HTN. Routinely followed by Dr. Ryan for pulmonary. He also has severe PAD and is s/p bilateral iliac artery stenting ([place]), on Plavix. Admitted now with COPD exac after having shortness of breath and wheezing x 1 week. Also had HTN emergency, BP 248/120, with some non-radiating chest pressure, improved now. -Hypertensive emergency, continues to improve. Continue to increase the calcium channel laura. Severe COPD limits beta-laura use -History of PAF, he was not anticoagulated previously. Continue antiplatelets. He is at risk for MAT due to his severe lung issues. If this is an issue, increase in the CCB laura may help -Stopped digoxin, LVEF was preserved -HLD-continue statin. -Smoking cessation consult -Continue optimization from pulmonary standpoint. Hopeful for discharge home tomorrow. Current Visit: Yes (2) COPD exacerbation Status: Acute Assessment and plan: SEE PLAN OF CARE LISTED BELOW. Current Visit: Yes (3) Claudication Status: Chronic Assessment and plan: SEE PLAN OF CARE LISTED BELOW. Current Visit: Yes (4) Diabetes mellitus Status: Chronic Assessment and plan: SEE PLAN OF CARE LISTED BELOW. Current Visit: Yes (5) Heavy smoker Status: Chronic Assessment and plan: SEE PLAN OF CARE LISTED BELOW. Current Visit: Yes (6) Paroxysmal atrial fibrillation Status: Chronic Assessment and plan: SEE PLAN OF CARE LISTED BELOW. Current Visit: Yes Cardiology - PN: Subj Interval history: Tool Checker: Dr. Almaguer SUMMARY: 61-year-old WM, PMHx hypertension, PAF, severe PAD status post bilateral iliac artery stenting (intermittent claudication), dyslipidemia, diabetes, and COPD. Patient is a heavy smoker (2 PPD), and is followed by fire equipment repairer inspector Dr. Ryan. Patient was admitted by cardiology service to [facility] on 07[facility]13 with shortness of breath, hypertensive emergency (248/119), and wheezing for 1 week. ACS ruled out since admission. He is being treated for COPD exacerbation. He does have a history of pulmonary nodules but no prior history of CAD or [place]. Echocardiogram in February 2017 at [facility] clinic, EF 85% with mild diastolic dysfunction and LVH, mild MR/TR, no elevated right-sided pressures. Chest CT on 07/14 with central clearing of previously noted nodules, inflammatory changes involving right upper and middle lobes, prominent right hilar lymph nodes, development of focal thickening/subsegmental atelectasis, but overall no change compared to CT in February 2017. Breathing has improved. July: Patient is awake and alert this morning. His is present with him at bedside this morning. He is anxious for discharge home today. He is in no acute respiratory distress. Denies chest pain, dizziness, palpitations, or other cardiac complaint. BP continues to improve with SBP 145-155 mmHg. Telemetry: SR, HR 60s, mild bradycardia upper 50s. Up and out of bed to ambulate today with PT. Reports he has not been out of bed, walking, etc. Labs reviewed. Elevated WBC 15,100 today. Electrolytes within acceptable range. Fasting lipid panel shows triglycerides 160 with LDL 84. Theophylline 3.2 today. From cardiac standpoint, he is stable for discharge home today. However, he continues to have some wheezing, and he will require an additional day of pulmonary treatment. Hopeful for discharge home tomorrow. ROS: -Denies dyspnea, cough. Mild wheezing noted -Denies chest pain, palpitations -Denies abd pain, N/V. Appetite is good. Exam (Progress Note) - Constitutional Vitals: Period Temp Pulse Resp BP Sys/Bass Pulse Ox Last 24 Hr 97.4 F-98.0 F 60-80 16-20 146-168/68-76 92-99 Exam: General appearance: normal weight, no acute distress Head exam: normal inspection, atraumatic Eye exam: Pupils are equal and reactive. EOMI. There is no trauma. Ear exam: Anatomically normal. Normal auditory acuity to conversation. Oral exam: No significant oral lesions. Neck exam: normal inspection. No JVD. No carotid bruit. Trachea is in midline. Respiratory exam: Expiratory wheeze-some improvement from yesterday. Lung sounds coarse throughout. Cardiovascular exam: Distant heart sounds but regular rate and rhythm, no murmur or gallop or rub. No precordial lift. No bruits over the major arteries. Chest wall/torso: Anatomically normal. No tenderness, deformity Peripheral Pulses: 2+ radial pulses with diminished foot pulses. GI/Abdominal exam: normal bowel sounds, soft and nontender, no abdominal bruits or pulsatile masses. Musculoskeletal/Extremities exam: normal inspection without edema or cyanosis. No deformities or trauma. Full ROM. Normal capillary refill Neurological exam: alert, oriented X3. There is no gross neurologic deficits. No tremor. Psychiatric exam: normal affect, normal mood. Cognitive function is grossly intact. Patient does not appear anxious or depressed. Skin exam: chronic solar skin changes. He has stitches in his right arm from skin cancer removed recently. Ecchymotic bruising to bilateral upper extremities Result/EKG - Labs CBC & BMP: 07/15/17 05:22 07/15/17 05:22 Lab Results: I have reviewed the past 24 hour labs Labs: Laboratory Results - last 24 hr 07/14/17 07/14/17 07/15/17 16:02 20:07 05:22 WBC 15.9 H D RBC 3.83 Hgb 11.8 L Hct 34.2 L MCV 89.3 MCH 31 MCHC 34.5 RDW 13.6 Plt Count 244 MPV 9.4 L Neut % (Auto) 71.6 Lymph % (Auto) 18.3 L Nance % (Auto) 8.3 Eos % (Auto) 0.1 Baso % (Auto) 0.3 Neut # (Auto) 11.4 H Lymph # (Auto) 2.9 Nance # (Auto) 1.3 H Eos # (Auto) 0.0 Baso # (Auto) 0.0 Immature Gran % 1.4 Nucleated RBC % 0.0 Immature Gran # 0.22 Nucleated RBCs # 0.00 Immature Plt Fraction 0.0 Sodium Potassium Chloride Carbon Dioxide Anion Gap BUN Creatinine GFR Calculation BUN/Creatinine Ratio Glucose POC Glucose 264 H 225 H Calculated Osmolality Calcium Magnesium Triglycerides Cholesterol LDL Cholesterol VLDL Cholesterol HDL Cholesterol Heart Disease Risk Ratio Theophylline 07/15/17 07/15/17 07/15/17 05:22 05:22 08:32 WBC RBC Hgb Hct MCV MCH MCHC RDW Plt Count MPV Neut % (Auto) Lymph % (Auto) Nance % (Auto) Eos % (Auto) Baso % (Auto) Neut # (Auto) Lymph # (Auto) Nance # (Auto) Eos # (Auto) Baso # (Auto) Immature Gran % Nucleated RBC % Immature Gran # Nucleated RBCs # Immature Plt Fraction Sodium 141 Potassium 3.9 Chloride 106 Carbon Dioxide 25 Anion Gap 13.9 BUN 26 H Creatinine 1.00 GFR Calculation 90 BUN/Creatinine Ratio 26.00 H Glucose 155 H POC Glucose 187 H Calculated Osmolality 288.3 Calcium 9.4 Magnesium 1.9 Triglycerides 160 H Cholesterol 147 LDL Cholesterol 84.0 VLDL Cholesterol 32.0 HDL Cholesterol 35 L Heart Disease Risk Ratio 4.20 Theophylline 07/15/17 07/15/17 12:06 12:49 WBC RBC Hgb Hct MCV MCH MCHC RDW Plt Count MPV Neut % (Auto) Lymph % (Auto) Nance % (Auto) Eos % (Auto) Baso % (Auto) Neut # (Auto) Lymph # (Auto) Nance # (Auto) Eos # (Auto) Baso # (Auto) Immature Gran % Nucleated RBC % Immature Gran # Nucleated RBCs # Immature Plt Fraction Sodium Potassium Chloride Carbon Dioxide Anion Gap BUN Creatinine GFR Calculation BUN/Creatinine Ratio Glucose POC Glucose 213 H Calculated Osmolality Calcium Magnesium Triglycerides Cholesterol LDL Cholesterol VLDL Cholesterol HDL Cholesterol Heart Disease Risk Ratio Theophylline 3.2 L - EKG EKG results: interpreted by me, no acute changes EKG shows: sinus rhythm Jc Flores Attila, MD, personally performed the services described in this documentation, ascribed by Gladys Yu RN in my presence, and it is both accurate and complete 831 .
[2017-07-15] MEDS: ROSUVASTATIN 20 MG TABLET PO SCH (20:48)
[2017-07-15] MEDS: LEVOFLOXACIN INJ 500 MG in PREMIX 1 EACH IV SCH (20:48)
[2017-07-16] MEDS: LEVALBUTEROL 1.25 MG/3 ML NEB RESP TX SCH ×4 (02:46→14:04)
[2017-07-16] MEDS: cloNIDine 0.1 MG TABLET PO PRN (06:17)
[2017-07-16] MEDS: ALBUTEROL 2 MG TABLET PO SCH (06:17)
[2017-07-16] MEDS: INSULIN REGULAR 100 UNIT/ML SUBCUT SCH ×2 (08:39→12:13)
[2017-07-16] MEDS: DILTIAZEM CD 180 MG CAPSULE PO SCH (08:40)
[2017-07-16] MEDS: MAGNESIUM OXIDE 400 MG TABLET PO SCH (08:40)
[2017-07-16] MEDS: LOSARTAN 25 MG TABLET PO SCH (08:40)
[2017-07-16] MEDS: ASPIRIN EC 325 MG TABLET PO SCH (08:40)
[2017-07-16] MEDS: PANTOPRAZOLE 40 MG TABLET PO SCH (08:41)
[2017-07-16] MEDS: CLOPIDOGREL 75 MG TABLET PO SCH (08:41)
[2017-07-16] MEDS: METOPROLOL SUCCINATE XL 25 MG TABLET PO SCH (08:41)
[2017-07-16] MEDS: MONTELUKAST 10 MG TABLET PO SCH (08:41)
[2017-07-16] MEDS: BUDESONIDE/FORMOTEROL 160-4.5 INHALER 6 GM INH SCH (08:41)
[2017-07-16] MEDS: THEOPHYLLINE ER (24 HR) 200 MG CAPSULE PO SCH (08:41)
[2017-07-16] MEDS: FEBUXOSTAT 80 MG TABLET PO SCH (08:41)
[2017-07-16] MEDS ORDERED: DEXTROSE 50% 25 GM/50 ML VIAL IV PRN (11:00)
--- NOTE | 2017-07-16 11:46 | Pulmonology Progress Note ---
Pulmonary - PN: Subj Interval history: Main Ghosh, JERRELL-, acting as scribe for Dr. Riccardo Ryan Mr. Potts is a 61-year-old white male who we saw in initial pulmonary consultation 07/14/2017. At that time, our impressions were: #1: Acute exacerbation of COPD. Note, the patient states that his breathing is much improved since admission. #2: COPD/asthma #3: Uncontrolled hypertension #4: Tobacco abuse #5: Hyperlipidemia #6: History of gout #7: Atrial fibrillation #8: Chest pain #9: See past history 07/15/2017. Patient was seen today along with his . He feels his breathing has improved, but on chest exam he continues to have significant large airway and high-pitched peripheral wheezes. He is already on theophylline and Singulair, Malinda start albuterol 2 mg p.o. 3 times daily. He has not had a theophylline level checked this admission, so one will be obtained. He asked about discharge. We told him if his respiratory status improves he could possibly be ready for discharge tomorrow. If he would be discharged today with the amount of wheezes he has he will be coming back for readmission very quickly. CT of the chest 10 07/14/2017 showed central clearing of the previously described nodular inflammatory changes involving the right upper and middle lobes, development of focal thickening and subsegmental atelectasis along the right minor fissure, and prominent right hilar lymph nodes which are unchanged in overall size and appearance when compared to CT done 02/28/2017. Medications have been reviewed. We made no changes today other than the addition of albuterol as above. Labs been reviewed. White count is 15,900 with 71.6% segs; H&H 11.8/34.2; platelet count 244,000; creatinine 1.00, BUN 26, electrolytes were normal; fasting lipoprotein profile shows a total cholesterol 147, LDL 84, HDL 35, and triglycerides 160 Microbiology has been reviewed. Sputum Gram stain showed few gram-positive cocci in pairs, chains and clusters. Sputum culture is growing "normal cindy" at 12 hours. 07/16/2017. The patient was started on oral albuterol yesterday. He is tolerating this medication fine and on chest exam is previously noted high- pitched peripheral wheezes have markedly improved. Theophylline level is slightly low at 3.2, but this patient has been a smoker and has now stopped at least since this admission so we have made no adjustments to his theophylline dose. He states that he was taking his theophylline at home. He has been ambulating and states he is doing fine with this. There are no positive cultures. Overall, we now feel that he would be safe for discharge from a pulmonary standpoint. Medications have been reviewed. We made no changes today. Labs been reviewed. No new labs were drawn today. Microbiology has been reviewed. Sputum culture grew no organisms. Exam (Progress Note) - Constitutional Vitals: Period Temp Pulse Resp BP Sys/Bass Pulse Ox Last 24 Hr 96.6 F-98.1 F 58-80 16-20 149-176/66-82 93-98 Exam: Chest... See above Heart no gallop Abdomen is nontender and nondistended; bowel sounds positive 4 Extremities with nothing to suggest acute deep venous thrombophlebitis Psychiatric oriented 3 Neurologic long-term motor function is intact Plan: Patient has improved enough from a pulmonary standpoint that he can now be safely discharged home. He needs to continue his theophylline, Singulair, Symbicort, and oral albuterol at discharge. He can keep his regularly scheduled follow-up appointment with Dr. Ryan. We will sign off. Please reconsult as needed. Results - Labs CBC & BMP: 07/15/17 05:22 07/15/17 05:22
[2017-07-16 12:07] VITALS: BP 149/72
--- NOTE | 2017-07-17 12:37 | Discharge Summary ---
Gigi Flores Vanessa, RN, am scribing for, and in the presence of, Hardik Greene MD 12 :37. Hospital Course - Hospital Course Hospital Course: Patient is a 61-year-old WM, followed by Dr. Almaguer. Past medical history hypertension, PAF, severe PAD status post bilateral iliac artery stenting, HLD, DM, COPD. Patient is a chronic heavy smoker. Routinely followed by personnel analyst Dr. Ryan. Patient was admitted to the cardiology service on 07/13 with shortness of breath, hypertensive emergency (BP 248/120), and wheezing. Since admission, ACS has been ruled out. No prior history of CAD or [place]. Echocardiogram in February 2017 with EF 65%, mild diastolic dysfunction, mild MR/TR. He has received treatment for COPD exacerbation. Dr. Ryan, personnel analyst, has evaluated patient in consultation. He also has a history of pulmonary nodules, and he was evaluated with CT of chest. CT showed no evidence of pulmonary embolus. Did have central clearing of previous described nodules with some development of atelectasis and overall unchanged CT compared to February 2017. Sputum cultures have remained negative. He has improved with antibiotics , adjustment of pulmonary medications. Per recommendations of pulmonary, patient was kept an additional night for observation and treatment for some continued wheezing and was started on oral albuterol. Today, he is feeling better. Wheezing is significantly improved today. He is hemodynamically stable. He is anxious for discharge home. Pulmonary has seen this morning, and patient is to continue theophylline, Singulair, Symbicort, oral albuterol. Patient has reached maximum hospital benefit, and will be discharged home today. We will keep previously scheduled follow-up appointment with Dr. Ryan. Will need follow-up appointment with Dr. Almaguer in 2-3 weeks EKG, CBC, BMP. Will be provided with prescription for new medications. Smoking cessation has been discussed with patient for greater than 5 minutes today. He voices that he is going to attempt to quit. - Time spent with patient Time with patient DS: Greater than 30 minutes Diagnosis - Discharge Diagnosis (1) Chest pain Status: Chronic (2) COPD exacerbation Status: Acute (3) Claudication Status: Chronic (4) Diabetes mellitus Status: Chronic (5) Heavy smoker Status: Chronic (6) Paroxysmal atrial fibrillation Status: Chronic Specialty Discharge - Follow Up or Referrals Follow up with: Efrain Almaguer MD [Primary Care Provider] - 08/01/17 9:35 am (Follow up with EKG, CBC, BMP, Mg) Riccardo Ryan MD [Physician] - (Keep previously scheduled appointment.) Discharge Plan - Discharge Data Disposition: Disch To Home/Self Care Condition at Discharge: Stable Discharge Diet: heart healthy, low fat, low cholesterol, low salt diet Activity: resume usual activities as tolerated Hygiene: no restrictions Weight Bearing at Discharge: full weight bearing Contact your physician if you experience:: fever over 101, Difficulty voiding, Redness or swelling, Nausea/Vomiting, Shortness of breath, Bleeding, pain uncontrolled by pain medications - Discharge Medications New Albuterol Tab [Proventil Tab] 2 mg PO Q8HR #90 tablet Losartan [Cozaar] 12.5 mg PO DAILY #30 tablet Metoprolol Succinate Xl [Toprol Xl] 25 mg PO DAILY #30 tablet Rosuvastatin [Crestor] 20 mg PO BEDTIME #30 tablet Aspirin EC Tab 325 mg PO DAILY tablet Continue Metformin HCl 500 mg PO DAILY Pantoprazole Tab [Protonix Tab] 40 mg PO QAM Budesonide/Formoterol 160-4.5 [Symbicort 160-4.5] 2 puff INH QAM Albuterol Sulfate [Ventolin HFA] 2 puff INH Q4H PRN PRN Reason: Shortness Of Breath/Wheezing Montelukast Sodium 10 mg PO QAM dilTIAZem HCl [Diltiazem ER (24 hr)] 180 mg PO QAM Theophylline ER Tab 200 mg PO QAM Albuterol Neb [Proventil Neb] 2.5 mg RESP TX Q4H PRN PRN Reason: Shortness Of Breath/Wheezing Febuxostat [Uloric] 80 mg PO QAM Clopidogrel [Plavix] 75 mg PO QAM guaiFENesin [Guaifenesin] 200 mg PO QAM Magnesium Oxide [Magox 400] 400 mg PO DAILY Discontinued Atorvastatin [Lipitor] 20 mg PO QAM Digoxin 125 mcg PO QAM Carvedilol [Coreg] 6.25 mg PO QAM - Follow Up or Referral Follow Up: Efrain Almaguer MD [Primary Care Provider] - 08/01/17 9:35 am (Follow up with EKG, CBC, BMP, Mg) Riccardo Ryan MD [Physician] - (Keep previously scheduled appointment.) - Forms/Instructions Instructions: Chest Pain (DC) Exam - Constitutional Vitals: Period Temp Pulse Resp BP Sys/Bass Pulse Ox Last 24 Hr 96.6 F-98.1 F 58-80 16-20 149-176/66-82 93-98 Exam: General appearance: normal weight, no acute distress Head exam: normal inspection, atraumatic Eye exam: Pupils are equal and reactive. EOMI. There is no trauma. Ear exam: Anatomically normal. Normal auditory acuity to conversation. Oral exam: No significant oral lesions. Neck exam: normal inspection. No JVD. No carotid bruit. Trachea is in midline. Respiratory exam: Expiratory wheeze-some improvement from yesterday. Lung sounds coarse throughout. Cardiovascular exam: Distant heart sounds but regular rate and rhythm, no murmur or gallop or rub. No precordial lift. No bruits over the major arteries. Chest wall/torso: Anatomically normal. No tenderness, deformity Peripheral Pulses: 2+ radial pulses with diminished foot pulses. GI/Abdominal exam: normal bowel sounds, soft and nontender, no abdominal bruits or pulsatile masses. Musculoskeletal/Extremities exam: normal inspection without edema or cyanosis. No deformities or trauma. Full ROM. Normal capillary refill Neurological exam: alert, oriented X3. There is no gross neurologic deficits. No tremor. Psychiatric exam: normal affect, normal mood. Cognitive function is grossly intact. Patient does not appear anxious or depressed. Skin exam: chronic solar skin changes. He has stitches in his right arm from skin cancer removed recently. Ecchymotic bruising to bilateral upper extremities Discharge Results Labs on day of discharge: Labs from last 24 hours 07/16/17 07/15/17 07/15/17 07:48 19:36 16:47 POC Glucose 162 H 171 H 178 H Theophylline 07/15/17 07/15/17 12:49 12:06 POC Glucose 213 H Theophylline 3.2 L DS: Provider Consults: 07/13/17 18:45 Consult to Physician [CONS] Routine Comment: COPD exacerbation Consulting Provider: Riccardo Ryan Consulting Provider Notified: No When should Consulting Provider be notified: In am 07/15/17 08:40 Consult to Physical Therapy [CONS] Routine Reason for Physical Therapy: Ambulation Jc Flores Attila, MD, personally performed the services described in this documentation, ascribed by Gladys Yu RN in my presence, and it is both accurate and complete .
== END 2017-07-16 15:56 | disposition home or self-care (01) | DRG 191 ==
LOC: N.ED 12:12 → N.EDINP 12:12 → OBSVTOIN 15:12 → N.TELEN 16:01
PROVIDERS: ADMIT Internal Medicine Cardiovascular Disease; ATTEND Internal Medicine Cardiovascular Disease

== ENCOUNTER 2017-10-12 21:49 | Inpatient (IN) ==
[2017-10-12] MEDS ORDERED: ALBUTEROL/IPRATROPIUM 3 ML NEB RESP TX SCH (23:00)
[2017-10-12 23:11] LABS: Basophils % 0.4 % (0.0-0.8); Eosinophils # 0.1 10*3/uL (0.0-0.87); Hematocrit 39.5 VOL% (42.0-52.0); Hemoglobin 12.7 GM/DL (14.0-18.0); Immature Granulocytes % 1.2 %; Immature Granulocytes Absolute 0.08 #; Lymphocytes # 0.9 10*3/uL (1.4-4.0); Lymphocytes % 12.9 % (21.2-54.2); Mean Corpuscular HGB Conc 32.2 GM/DL (32-36); Mean Corpuscular Hemoglobin 29 PG (27-34); Mean Corpuscular Volume 91.2 FL (87-102); Mean Platelet Volume 9.1 FL (9.6-12.0); Monocytes # 0.3 10*3/uL (0.11-0.8); Monocytes % 4.6 % (1.7-12.7); Neutrophils # 5.3 10*3/uL (1.4-7.4); Neutrophils % 79.9 % (38.7-73.9); Platelet Count 245 T/CUMM (130-400); Red Blood Count 4.33 MC/CUMM (3.8-5.5); White Blood Count 6.7 T/CUMM (4-12)
[2017-10-12 23:29] LABS: Calcium 8.6 MG/DL (8.5-10.1); Magnesium 1.2 MG/DL (1.8-2.4); Osmolality,Calculated 285.1 MOS/KG (273-304); Potassium 3.6 MMOL/L (3.5-5.1)
[2017-10-13] MEDS ORDERED: methylPREDNISolone SOD SUC 40 MG/1 ML VIAL IV STA (00:08)
[2017-10-13] MEDS ORDERED: OSELTAMIVIR 75 MG CAPSULE PO STA (00:08)
[2017-10-13] MEDS ORDERED: ACETAMINOPHEN 500 MG TABLET PO STA (00:13)
[2017-10-13] MEDS ORDERED: OSELTAMIVIR 75 MG CAPSULE ONE (00:17)
[2017-10-13] MEDS ORDERED: ACETAMINOPHEN 500 MG TABLET ONE (00:18)
[2017-10-13] MEDS ORDERED: methylPREDNISolone SOD SUC 40 MG/1 ML VIAL ONE (00:18)
[2017-10-13] MEDS ORDERED: MAGNESIUM SULF RIDER 2 GM in PREMIX 1 EACH IV STA (00:22)
[2017-10-13] MEDS ORDERED: MAGNESIUM SULF RIDER 50 ML IV ONE (00:33)
[2017-10-13] MEDS ORDERED: ACETAMINOPHEN 325 MG TABLET PO PRN (00:53)
[2017-10-13] MEDS ORDERED: ONDANSETRON 4 MG/2 ML VIAL IV PRN (00:53)
[2017-10-13] MEDS ORDERED: NICOTINE 21 MG/24 HR PATCH TRANSDERM PRN (02:07)
[2017-10-13] MEDS: LEVOFLOXACIN INJ 750 MG in PREMIX 1 EACH IV SCH (02:46)
[2017-10-13] MEDS: methylPREDNISolone SOD SUC 40 MG/1 ML VIAL IV SCH ×3 (05:00→18:22)
[2017-10-13] MEDS: ALBUTEROL 2.5 MG/3 ML NEB RESP TX SCH ×4 (06:20→13:05)
[2017-10-13] MEDS: ALBUTEROL/IPRATROPIUM 3 ML NEB RESP TX SCH ×4 (06:22→20:49)
[2017-10-13 07:50] LABS: Basophils % 0.1 % (0.0-0.8); Hematocrit 38.3 VOL% (42.0-52.0); Hemoglobin 12.8 GM/DL (14.0-18.0); Immature Granulocytes % 1.4 %; Immature Granulocytes Absolute 0.19 #; Lymphocytes # 0.5 10*3/uL (1.4-4.0); Lymphocytes % 3.3 % (21.2-54.2); Mean Corpuscular HGB Conc 33.4 GM/DL (32-36); Mean Corpuscular Hemoglobin 30 PG (27-34); Mean Corpuscular Volume 88.5 FL (87-102); Monocytes # 0.5 10*3/uL (0.11-0.8); Monocytes % 3.7 % (1.7-12.7); Neutrophils # 12.5 10*3/uL (1.4-7.4); Neutrophils % 91.5 % (38.7-73.9); Platelet Count 242 T/CUMM (130-400); Red Blood Count 4.33 MC/CUMM (3.8-5.5); Red Cell Distribution Width 14.9 % (9.3-17.3); White Blood Count 13.7 T/CUMM (4-12)
[2017-10-13 08:22] LABS: Band Neutrophils 13 % (0-10); Bilirubin,Total 0.4 MG/DL (0.2-1.0); Calcium 8.5 MG/DL (8.5-10.1); Hypochromasia 1+; Lymphocytes 5 % (20-55); Osmolality,Calculated 286.5 MOS/KG (273-304); Potassium 4.2 MMOL/L (3.5-5.1); Segmented Neutrophils 78 % (50-85); Total Cells Counted 100
[2017-10-13 08:23] LABS: Microcytosis 1+
[2017-10-13] MEDS: PANTOPRAZOLE 40 MG TABLET PO SCH (09:19)
[2017-10-13] MEDS: ENOXAPARIN 40 MG/0.4 ML SYRINGE SUBCUT SCH (09:20)
[2017-10-13] MEDS: BUDESONIDE/FORMOTEROL 160-4.5 INHALER 6 GM INH SCH ×4 (12:32→21:53)
[2017-10-13] MEDS ORDERED: GLUCAGON 1 MG VIAL IM PRN (13:47)
[2017-10-13] MEDS ORDERED: DEXTROSE 50% 25 GM/50 ML VIAL IV PRN (13:47)
[2017-10-13] MEDS: ALBUTEROL 2 MG TABLET PO SCH ×2 (14:37→21:51)
[2017-10-13] MEDS: MONTELUKAST 10 MG TABLET PO SCH ×2 (14:37→21:51)
[2017-10-13] MEDS: cefTAZidime 1,000 MG in SYRINGE 1 EACH IV SCH (17:03)
[2017-10-13] MEDS: THEOPHYLLINE ER 300 MG TABLET PO SCH (18:22)
[2017-10-13] MEDS: INSULIN LISPRO 100 UNIT/ML SUBCUT SCH (18:54)
[2017-10-13] MEDS: OSELTAMIVIR 75 MG CAPSULE PO SCH (21:51)
[2017-10-13] MEDS: metFORMIN 500 MG TABLET PO SCH (21:51)
[2017-10-14] MEDS: methylPREDNISolone SOD SUC 40 MG/1 ML VIAL IV SCH ×3 (00:21→17:17)
[2017-10-14] MEDS: cefTAZidime 1,000 MG in SYRINGE 1 EACH IV SCH ×3 (00:21→19:52)
[2017-10-14] MEDS: INSULIN LISPRO 100 UNIT/ML SUBCUT SCH ×5 (00:30→21:46)
[2017-10-14] MEDS: ALBUTEROL/IPRATROPIUM 3 ML NEB RESP TX SCH ×4 (02:12→18:30)
[2017-10-14] MEDS: LEVOFLOXACIN INJ 750 MG in PREMIX 1 EACH IV SCH (04:25)
[2017-10-14 06:23] LABS: Basophils % 0.1 % (0.0-0.8); Hematocrit 36.5 VOL% (42.0-52.0); Hemoglobin 12.2 GM/DL (14.0-18.0); Immature Granulocytes Absolute 0.17 #; Lymphocytes # 0.6 10*3/uL (1.4-4.0); Lymphocytes % 3.5 % (21.2-54.2); Mean Corpuscular HGB Conc 33.4 GM/DL (32-36); Mean Corpuscular Hemoglobin 29 PG (27-34); Mean Corpuscular Volume 87.7 FL (87-102); Mean Platelet Volume 9.3 FL (9.6-12.0); Monocytes # 0.6 10*3/uL (0.11-0.8); Neutrophils # 14.8 10*3/uL (1.4-7.4); Neutrophils % 91.4 % (38.7-73.9); Platelet Count 266 T/CUMM (130-400); Red Blood Count 4.16 MC/CUMM (3.8-5.5); Red Cell Distribution Width 14.9 % (9.3-17.3); White Blood Count 16.2 T/CUMM (4-12)
[2017-10-14] MEDS: ALBUTEROL 2 MG TABLET PO SCH ×3 (06:25→21:47)
[2017-10-14 06:46] LABS: Band Neutrophils 26 % (0-10); Hypochromasia 2+; Lymphocytes 2 % (20-55); Microcytosis 1+; Platelet Estimate Adequate; Segmented Neutrophils 61 % (50-85); Total Cells Counted 100
[2017-10-14 06:58] LABS: Calcium 8.7 MG/DL (8.5-10.1); Osmolality,Calculated 289.4 MOS/KG (273-304); Potassium 3.9 MMOL/L (3.5-5.1)
[2017-10-14] MEDS ORDERED: METOPROLOL SUCCINATE XL 25 MG TABLET PO SCH (09:00)
[2017-10-14] MEDS ORDERED: LOSARTAN 25 MG TABLET PO SCH (09:00)
[2017-10-14] MEDS ORDERED: MONTELUKAST 10 MG TABLET PO SCH (09:00)
[2017-10-14] MEDS: ENOXAPARIN 40 MG/0.4 ML SYRINGE SUBCUT SCH (09:26)
[2017-10-14] MEDS: THEOPHYLLINE ER 300 MG TABLET PO SCH ×2 (09:27→17:15)
[2017-10-14] MEDS: CLOPIDOGREL 75 MG TABLET PO SCH (09:27)
[2017-10-14] MEDS: DILTIAZEM CD 180 MG CAPSULE PO SCH (09:28)
[2017-10-14] MEDS: metFORMIN 500 MG TABLET PO SCH ×2 (09:28→17:16)
[2017-10-14] MEDS: PANTOPRAZOLE 40 MG TABLET PO SCH (09:28)
[2017-10-14] MEDS: MAGNESIUM OXIDE 400 MG TABLET PO SCH (09:29)
[2017-10-14] MEDS: FEBUXOSTAT 80 MG TABLET PO SCH (09:29)
[2017-10-14] MEDS: OSELTAMIVIR 75 MG CAPSULE PO SCH ×2 (09:30→21:48)
[2017-10-14] MEDS: ASPIRIN EC 81 MG TABLET PO SCH (09:30)
[2017-10-14] MEDS: BUDESONIDE/FORMOTEROL 160-4.5 INHALER 6 GM INH SCH ×2 (09:31→21:48)
[2017-10-14] MEDS: MONTELUKAST 10 MG TABLET PO SCH ×2 (09:31→21:47)
[2017-10-14] MEDS ORDERED: ALBUTEROL 2.5 MG/3 ML NEB RESP TX PRN (13:30)
[2017-10-14] MEDS ORDERED: AMINOPHYLLINE 250 MG in SODIUM CHLORIDE 0.9% 100 ML IV ONE (13:47)
[2017-10-14] MEDS: CARVEDILOL 6.25 MG TABLET PO SCH ×2 (14:12→21:47)
[2017-10-14] MEDS: glyBURIDE 5 MG TABLET PO SCH (17:16)
[2017-10-14] MEDS: LOSARTAN 50 MG TABLET PO SCH (21:47)
[2017-10-15] MEDS: ALBUTEROL/IPRATROPIUM 3 ML NEB RESP TX SCH ×4 (00:53→19:58)
[2017-10-15] MEDS: methylPREDNISolone SOD SUC 40 MG/1 ML VIAL IV SCH ×2 (01:19→08:38)
[2017-10-15] MEDS: cefTAZidime 1,000 MG in SYRINGE 1 EACH IV SCH ×3 (01:26→16:37)
[2017-10-15] MEDS: INSULIN LISPRO 100 UNIT/ML SUBCUT SCH ×4 (08:31→20:53)
[2017-10-15] MEDS: ALBUTEROL 2 MG TABLET PO SCH ×2 (08:31→16:35)
[2017-10-15] MEDS: CARVEDILOL 6.25 MG TABLET PO SCH ×2 (08:32→16:36)
[2017-10-15] MEDS: metFORMIN 500 MG TABLET PO SCH ×2 (08:33→16:36)
[2017-10-15] MEDS: glyBURIDE 5 MG TABLET PO SCH ×2 (08:33→16:36)
[2017-10-15] MEDS: THEOPHYLLINE ER 300 MG TABLET PO SCH (08:34)
[2017-10-15] MEDS: ASPIRIN EC 81 MG TABLET PO SCH (08:34)
[2017-10-15] MEDS: LOSARTAN 50 MG TABLET PO SCH ×2 (08:35→20:49)
[2017-10-15] MEDS: DILTIAZEM CD 180 MG CAPSULE PO SCH (08:35)
[2017-10-15] MEDS: CLOPIDOGREL 75 MG TABLET PO SCH (08:36)
[2017-10-15] MEDS: PANTOPRAZOLE 40 MG TABLET PO SCH (08:36)
[2017-10-15] MEDS: MAGNESIUM OXIDE 400 MG TABLET PO SCH (08:36)
[2017-10-15] MEDS: ENOXAPARIN 40 MG/0.4 ML SYRINGE SUBCUT SCH (08:36)
[2017-10-15] MEDS: FEBUXOSTAT 80 MG TABLET PO SCH (08:37)
[2017-10-15] MEDS: MONTELUKAST 10 MG TABLET PO SCH ×2 (08:37→20:49)
[2017-10-15] MEDS: OSELTAMIVIR 75 MG CAPSULE PO SCH ×2 (08:37→20:48)
[2017-10-15] MEDS: BUDESONIDE/FORMOTEROL 160-4.5 INHALER 6 GM INH SCH ×2 (08:38→20:49)
[2017-10-15] MEDS: LEVOFLOXACIN INJ 750 MG in PREMIX 1 EACH IV SCH (09:30)
[2017-10-15] MEDS: THEOPHYLLINE ER (24 HR) 200 MG CAPSULE PO SCH (16:37)
[2017-10-16] MEDS: ALBUTEROL/IPRATROPIUM 3 ML NEB RESP TX SCH ×2 (00:39→07:40)
[2017-10-16] MEDS: cefTAZidime 1,000 MG in SYRINGE 1 EACH IV SCH ×2 (00:50→09:08)
[2017-10-16] MEDS ORDERED: methylPREDNISolone SOD SUC 40 MG/1 ML VIAL IV SCH (04:00)
[2017-10-16] MEDS: ALBUTEROL 2 MG TABLET PO SCH ×3 (06:30→14:03)
[2017-10-16] MEDS: INSULIN LISPRO 100 UNIT/ML SUBCUT SCH ×2 (09:02→14:00)
[2017-10-16] MEDS: glyBURIDE 5 MG TABLET PO SCH (09:03)
[2017-10-16] MEDS: metFORMIN 500 MG TABLET PO SCH (09:03)
[2017-10-16] MEDS: CARVEDILOL 6.25 MG TABLET PO SCH (09:03)
[2017-10-16] MEDS: ASPIRIN EC 81 MG TABLET PO SCH (09:04)
[2017-10-16] MEDS: THEOPHYLLINE ER (24 HR) 200 MG CAPSULE PO SCH (09:04)
[2017-10-16] MEDS: DILTIAZEM CD 180 MG CAPSULE PO SCH (09:05)
[2017-10-16] MEDS: LOSARTAN 50 MG TABLET PO SCH (09:05)
[2017-10-16] MEDS: ENOXAPARIN 40 MG/0.4 ML SYRINGE SUBCUT SCH (09:05)
[2017-10-16] MEDS: OSELTAMIVIR 75 MG CAPSULE PO SCH (09:06)
[2017-10-16] MEDS: PANTOPRAZOLE 40 MG TABLET PO SCH (09:06)
[2017-10-16] MEDS: CLOPIDOGREL 75 MG TABLET PO SCH (09:06)
[2017-10-16] MEDS: MAGNESIUM OXIDE 400 MG TABLET PO SCH (09:06)
[2017-10-16] MEDS: MONTELUKAST 10 MG TABLET PO SCH (09:06)
[2017-10-16] MEDS: FEBUXOSTAT 80 MG TABLET PO SCH (09:07)
[2017-10-16] MEDS: BUDESONIDE/FORMOTEROL 160-4.5 INHALER 6 GM INH SCH (09:07)
[2017-10-16] MEDS: LEVOFLOXACIN INJ 750 MG in PREMIX 1 EACH IV SCH (09:16)
[2017-10-16 13:09] VITALS: BP 161/80
== END 2017-10-16 16:05 | disposition home or self-care (01) | DRG 190 ==
LOC: N.ED 21:49 → N.EDINP 10-13 00:53 → N.2E 10-13 01:49
PROVIDERS: ADMIT Internal Medicine; ATTEND Internal Medicine

== ENCOUNTER 2020-06-17 05:12 | Inpatient (IN) ==
[2020-06-17] MEDS ORDERED: NITROGLYCERIN 2% OINT 1 INCH/GM PACK TOP STA (05:25)
[2020-06-17] MEDS ORDERED: ASPIRIN EC 325 MG TABLET PO STA (05:25)
[2020-06-17 05:36] LABS: Basophils # 0.1 10*3/uL (0.0-0.2); Basophils % 0.7 % (0.0-0.8); Eosinophils # 0.1 10*3/uL (0.0-0.87); Hematocrit 37.8 VOL% (42.0-52.0); Hemoglobin 12.3 GM/DL (14.0-18.0); Immature Granulocytes % 0.8 %; Immature Granulocytes Absolute 0.09 #; Lymphocytes # 1.8 10*3/uL (1.4-4.0); Mean Corpuscular HGB Conc 32.5 GM/DL (32-36); Mean Corpuscular Volume 90.2 FL (87-102); Mean Platelet Volume 8.7 FL (9.6-12.0); Monocytes % 12.1 % (1.7-12.7); Neutrophils % 69.4 % (38.7-73.9); Platelet Count 340 T/CUMM (130-400); Red Blood Count 4.19 MC/CUMM (3.8-5.5); White Blood Count 11.5 T/CUMM (4-12)
[2020-06-17 05:51] LABS: Albumin 3.1 G/DL (3.4-5.0); Bilirubin,Total 0.5 MG/DL (0.2-1.0); Osmolality,Calculated 281.4 MOS/KG (273-304); Total Protein 6.9 G/DL (6.4-8.3)
[2020-06-17 05:52] LABS: PT Patient Result 10.5 SECS (9.8-11.9); Partial Thromboplastin Time 25.9 SECS (23.9-33.8)
[2020-06-17] MEDS ORDERED: ACETAMINOPHEN 325 MG TABLET PO PRN (07:16)
[2020-06-17] MEDS ORDERED: cefTRIAXone 1,000 MG in SODIUM CHLORIDE 0.9% 100 ML IV STA (07:16)
[2020-06-17] MEDS ORDERED: GLUCAGON 1 MG VIAL IM PRN (07:16)
[2020-06-17] MEDS ORDERED: MORPHINE 4 MG/1 ML VIAL IV PRN (07:16)
[2020-06-17] MEDS ORDERED: DEXTROSE 50% 25 GM/50 ML VIAL IV PRN (07:16)
[2020-06-17] MEDS ORDERED: ZALEPLON 5 MG CAPSULE PO PRN (07:16)
[2020-06-17] MEDS ORDERED: ONDANSETRON 4 MG/2 ML VIAL IV PRN (07:16)
[2020-06-17] MEDS ORDERED: BISACODYL 5 MG TABLET PO PRN (07:16)
[2020-06-17] MEDS ORDERED: SODIUM CHLORIDE 0.9% 1,000 ML IV SCH (07:30)
[2020-06-17] MEDS ORDERED: carvediloL 6.25 MG TABLET PO SCH (08:00)
[2020-06-17] MEDS ORDERED: LEVOFLOXACIN INJ 750 MG in PREMIX 1 EACH IV STA (08:10)
[2020-06-17] MEDS: ENOXAPARIN 40 MG/0.4 ML SYRINGE SUBCUT SCH (08:30)
[2020-06-17] MEDS: hydrALAZINE 20 MG/1 ML VIAL IV PRN (08:33)
[2020-06-17 08:53] LABS: Risk Ratio 3.59; Thyroid Stimulating Hormone 1.38 uIU/ml (0.358-3.74); VLDL CHOLESTEROL 25.2 MG/DL
[2020-06-17 09:21] LABS: Apearance,Urine CLEAR (Clear); Bilirubin,Urine Negative (Negative); Blood, Urine Small mg/dL (Negative); Glucose,Urine (UA) Negative (Negative); Ketones,Urine Negative (Negative); Mucus,Urine Occasional /LPF (Occasional); Nitrite,Urine Negative (Negative); Protein,Urine 30 MG/DL; RBC,Urine 3 /HPF (0-4); Urine Color Yellow (Yellow); Urine Specific Gravity > 1.060 (1.001-1.035); WBC,Urine <1 /HPF (0-6)
[2020-06-17 09:44] LABS: Barbiturates Screen,Urine Negative (Negative); Benzodiazepines Screen,Urine Negative (Negative); Cannabinoid Screen,Urine Negative (Negative); Opiate Screen,Urine Positive (Negative); Phencyclidine Screen,Urine Negative (Negative)
[2020-06-17] MEDS: INSULIN REGULAR 100 UNIT/ML SUBCUT SCH ×4 (10:38→20:35)
[2020-06-17] MEDS: DILTIAZEM CD 180 MG CAPSULE PO SCH (11:05)
[2020-06-17] MEDS: SPIRONOLACTONE 25 MG TABLET PO SCH (11:06)
[2020-06-17] MEDS: PANTOPRAZOLE 40 MG TABLET PO SCH (11:07)
[2020-06-17] MEDS: LOSARTAN 50 MG TABLET PO SCH ×2 (11:07→20:36)
[2020-06-17] MEDS: CLOPIDOGREL 75 MG TABLET PO SCH (11:07)
[2020-06-17] MEDS: ASPIRIN EC 81 MG TABLET PO SCH (11:07)
[2020-06-17] MEDS ORDERED: POTASSIUM CHLORIDE 20 MEQ TABLET PO ONE (11:19)
[2020-06-17] MEDS: PIPERACILLIN/TAZOBACTAM 3,375 MG in SODIUM CHLORIDE 0.9% 100 ML IV SCH ×2 (12:02→20:37)
[2020-06-17] MEDS ORDERED: carvediloL 3.125 MG TABLET PO ONE (12:17)
[2020-06-17] MEDS: ALBUTEROL/IPRATROPIUM 3 ML NEB RESP TX SCH ×2 (12:42→18:35)
[2020-06-17] MEDS: ROSUVASTATIN 10 MG TABLET PO SCH (20:36)
[2020-06-17] MEDS: carvediloL 12.5 MG TABLET PO SCH (20:36)
[2020-06-18] MEDS: ALBUTEROL/IPRATROPIUM 3 ML NEB RESP TX SCH ×4 (01:19→19:22)
[2020-06-18] MEDS: PIPERACILLIN/TAZOBACTAM 3,375 MG in SODIUM CHLORIDE 0.9% 100 ML IV SCH ×3 (04:40→21:00)
[2020-06-18 07:06] LABS: Basophils # 0.1 10*3/uL (0.0-0.2); Basophils % 0.7 % (0.0-0.8); Eosinophils # 0.2 10*3/uL (0.0-0.87); Eosinophils % 2.3 % (0.00-10.9); Immature Granulocytes % 0.9 %; Immature Granulocytes Absolute 0.08 #; Lymphocytes # 1.6 10*3/uL (1.4-4.0); Mean Corpuscular HGB Conc 32.7 GM/DL (32-36); Mean Corpuscular Volume 90.6 FL (87-102); Mean Platelet Volume 8.8 FL (9.6-12.0); Monocytes % 11.9 % (1.7-12.7); Neutrophils % 66.2 % (38.7-73.9); Platelet Count 297 T/CUMM (130-400); White Blood Count 9.1 T/CUMM (4-12)
[2020-06-18 07:07] LABS: Hemoglobin 9.8 GM/DL (14.0-18.0); Red Blood Count 3.31 MC/CUMM (3.8-5.5)
[2020-06-18 07:26] LABS: Albumin 2.3 G/DL (3.4-5.0); Bilirubin,Total 1.5 MG/DL (0.2-1.0); Calcium 8.9 MG/DL (8.5-10.1); Osmolality,Calculated 280.4 MOS/KG (273-304); Total Protein 6.1 G/DL (6.4-8.3)
[2020-06-18] MEDS: INSULIN REGULAR 100 UNIT/ML SUBCUT SCH ×4 (07:30→21:00)
[2020-06-18] MEDS: ENOXAPARIN 40 MG/0.4 ML SYRINGE SUBCUT SCH (07:34)
[2020-06-18] MEDS: CLOPIDOGREL 75 MG TABLET PO SCH (09:28)
[2020-06-18] MEDS: SPIRONOLACTONE 25 MG TABLET PO SCH (09:28)
[2020-06-18] MEDS: DILTIAZEM CD 180 MG CAPSULE PO SCH (09:29)
[2020-06-18] MEDS: PANTOPRAZOLE 40 MG TABLET PO SCH (09:29)
[2020-06-18] MEDS: ASPIRIN EC 81 MG TABLET PO SCH (09:29)
[2020-06-18] MEDS: carvediloL 12.5 MG TABLET PO SCH (09:29)
[2020-06-18] MEDS: LOSARTAN 50 MG TABLET PO SCH ×2 (09:33→21:00)
[2020-06-18] MEDS: LEVOFLOXACIN INJ 750 MG in PREMIX 1 EACH IV SCH (09:37)
[2020-06-18] MEDS: methylPREDNISolone SOD SUC 40 MG/1 ML VIAL IV SCH (15:06)
[2020-06-18] MEDS: VANCOMYCIN INJ 1,250 MG in SODIUM CHLORIDE 0.9% 250 ML IV SCH (16:06)
[2020-06-18] MEDS: carvediloL 25 MG TABLET PO SCH (17:13)
[2020-06-18] MEDS: hydrALAZINE 20 MG/1 ML VIAL IV PRN (19:45)
[2020-06-18] MEDS ORDERED: hydrALAZINE 20 MG/1 ML VIAL IV PRN (20:06)
[2020-06-18] MEDS: ROSUVASTATIN 10 MG TABLET PO SCH (21:00)
[2020-06-18] MEDS ORDERED: HYDROmorphone 2 MG/1 ML VIAL IV PRN (21:32)
[2020-06-18] MEDS ORDERED: METOPROLOL TARTRATE 5 MG/5 ML VIAL IV PRN (21:34)
[2020-06-18] MEDS ORDERED: HYDROmorphone 2 MG/1 ML VIAL IV ONE (22:12)
[2020-06-18] MEDS ORDERED: niCARdipine INJ 25 MG in SODIUM CHLORIDE 0.9% 240 ML IV STA (22:22)
[2020-06-18] MEDS ORDERED: TISSUE ADHESIVE 1 EACH APPLICATOR TOP ONE (22:43)
[2020-06-18] MEDS ORDERED: LIDOCAINE 1% 20 ML VIAL ONE (22:43)
[2020-06-18] MEDS ORDERED: BUPIVACAINE 0.5% 50 ML VIAL ONE (22:43)
[2020-06-18] MEDS ORDERED: LIDOCAINE 1%/EPI INJ 20 ML VIAL ONE (22:43)
[2020-06-18] MEDS ORDERED: SUGAMMADEX 200 MG/2 ML VIAL IV ONE (23:55)
[2020-06-19] MEDS ORDERED: niCARdipine 25 MG/10 ML VIAL IV ONE (00:15)
[2020-06-19] MEDS ORDERED: SUGAMMADEX 200 MG/2 ML VIAL IV ONE (00:18)
[2020-06-19] MEDS ORDERED: niCARdipine INJ 50 MG in SODIUM CHLORIDE 0.9% 480 ML IV STA ×2 (00:24→05:25)
[2020-06-19] MEDS ORDERED: MIDAZOLAM 2 MG/2 ML VIAL ONE (00:25)
[2020-06-19] MEDS ORDERED: LIDOCAINE 2% 5 ML VIAL ONE (00:25)
[2020-06-19] MEDS ORDERED: propofoL 200 MG/20 ML VIAL IV ONE (00:25)
[2020-06-19] MEDS ORDERED: SEVOFLURANE 1 UNIT/15 MINUTE INH ONE (00:25)
[2020-06-19] MEDS ORDERED: fentaNYL 100 MCG/2 ML VIAL ONE (00:25)
[2020-06-19] MEDS ORDERED: DEXAMETHASONE 4 MG/1 ML VIAL ONE (00:26)
[2020-06-19] MEDS ORDERED: ETOMIDATE 40 MG/20 ML VIAL IV ONE (00:26)
[2020-06-19] MEDS ORDERED: ePHEDrine 50 MG/ML VIAL ONE (00:26)
[2020-06-19] MEDS ORDERED: ONDANSETRON 4 MG/2 ML VIAL ONE (00:26)
[2020-06-19] MEDS ORDERED: SODIUM CHLORIDE 0.9% 1,000 ML IV ONE (00:27)
[2020-06-19] MEDS ORDERED: PHENYLEPHRINE 1 MG/10 ML SYRINGE IV ONE (00:27)
[2020-06-19] MEDS ORDERED: ROCURONIUM 100 MG/10 ML VIAL IV ONE (00:27)
[2020-06-19] MEDS ORDERED: SUCCINYLCHOLINE 200 MG/10 ML VIAL ONE (00:27)
[2020-06-19] MEDS ORDERED: niCARdipine INJ 25 MG in SODIUM CHLORIDE 0.9% 240 ML IV STA (00:32)
[2020-06-19] MEDS: VANCOMYCIN INJ 1,250 MG in SODIUM CHLORIDE 0.9% 250 ML IV SCH ×2 (02:16→13:25)
[2020-06-19] MEDS: ALBUTEROL/IPRATROPIUM 3 ML NEB RESP TX SCH ×4 (02:18→19:19)
[2020-06-19 03:37] LABS: Basophils % 0.2 % (0.0-0.8); Hemoglobin 10.5 GM/DL (14.0-18.0); Immature Granulocytes % 0.9 %; Immature Granulocytes Absolute 0.09 #; Lymphocytes # 0.8 10*3/uL (1.4-4.0); Lymphocytes % 8.5 % (21.2-54.2); Mean Corpuscular HGB Conc 31.8 GM/DL (32-36); Mean Corpuscular Volume 91.2 FL (87-102); Mean Platelet Volume 8.6 FL (9.6-12.0); Monocytes % 2.8 % (1.7-12.7); Neutrophils % 87.6 % (38.7-73.9); Platelet Count 319 T/CUMM (130-400); Red Blood Count 3.62 MC/CUMM (3.8-5.5); Red Cell Distribution Width 13.7 % (9.3-17.3); White Blood Count 9.8 T/CUMM (4-12)
[2020-06-19 03:45] LABS: Osmolality,Calculated 283.5 MOS/KG (273-304)
[2020-06-19] MEDS: PIPERACILLIN/TAZOBACTAM 3,375 MG in SODIUM CHLORIDE 0.9% 100 ML IV SCH ×3 (04:49→20:44)
[2020-06-19] MEDS: methylPREDNISolone SOD SUC 40 MG/1 ML VIAL IV SCH ×2 (04:49→13:57)
[2020-06-19] MEDS: INSULIN REGULAR 100 UNIT/ML SUBCUT SCH ×4 (08:41→20:45)
[2020-06-19] MEDS: DILTIAZEM CD 180 MG CAPSULE PO SCH (08:42)
[2020-06-19] MEDS: carvediloL 25 MG TABLET PO SCH ×2 (08:43→17:07)
[2020-06-19] MEDS: SPIRONOLACTONE 25 MG TABLET PO SCH (08:43)
[2020-06-19] MEDS: LOSARTAN 50 MG TABLET PO SCH ×2 (08:43→20:45)
[2020-06-19] MEDS: PANTOPRAZOLE 40 MG TABLET PO SCH (08:44)
[2020-06-19] MEDS: LEVOFLOXACIN INJ 750 MG in PREMIX 1 EACH IV SCH (08:44)
[2020-06-19] MEDS ORDERED: NOREPINEPHRINE 8 MG in SODIUM CHLORIDE 0.9% 242 ML IV PRN (09:05)
[2020-06-19] MEDS: ASPIRIN EC 81 MG TABLET PO SCH (10:51)
[2020-06-19] MEDS: CLOPIDOGREL 75 MG TABLET PO SCH (10:51)
[2020-06-19] MEDS ORDERED: DEXTROSE 50% 25 GM/50 ML VIAL IV PRN (11:13)
[2020-06-19] MEDS: ROSUVASTATIN 10 MG TABLET PO SCH (20:45)
[2020-06-20] MEDS: ALBUTEROL/IPRATROPIUM 3 ML NEB RESP TX SCH ×3 (00:42→13:25)
[2020-06-20] MEDS: VANCOMYCIN INJ 1,250 MG in SODIUM CHLORIDE 0.9% 250 ML IV SCH (02:37)
[2020-06-20] MEDS: methylPREDNISolone SOD SUC 40 MG/1 ML VIAL IV SCH (02:37)
[2020-06-20 05:09] LABS: Basophils % 0.1 % (0.0-0.8); Hematocrit 28.8 VOL% (42.0-52.0); Hemoglobin 9.2 GM/DL (14.0-18.0); Immature Granulocytes % 1.1 %; Immature Granulocytes Absolute 0.17 #; Lymphocytes % 6.4 % (21.2-54.2); Mean Corpuscular HGB Conc 31.9 GM/DL (32-36); Mean Corpuscular Volume 90.9 FL (87-102); Mean Platelet Volume 8.9 FL (9.6-12.0); Monocytes % 5.4 % (1.7-12.7); Platelet Count 361 T/CUMM (130-400); Red Blood Count 3.17 MC/CUMM (3.8-5.5); Red Cell Distribution Width 13.6 % (9.3-17.3); White Blood Count 15.9 T/CUMM (4-12)
[2020-06-20] MEDS: PIPERACILLIN/TAZOBACTAM 3,375 MG in SODIUM CHLORIDE 0.9% 100 ML IV SCH (05:10)
[2020-06-20 05:52] LABS: Calcium 8.3 MG/DL (8.5-10.1); Osmolality,Calculated 289.4 MOS/KG (273-304)
[2020-06-20] MEDS: INSULIN REGULAR 100 UNIT/ML SUBCUT SCH ×2 (09:59→13:06)
[2020-06-20] MEDS: DILTIAZEM CD 180 MG CAPSULE PO SCH (10:00)
[2020-06-20] MEDS: CLOPIDOGREL 75 MG TABLET PO SCH (10:00)
[2020-06-20] MEDS: ASPIRIN EC 81 MG TABLET PO SCH (10:00)
[2020-06-20] MEDS: carvediloL 25 MG TABLET PO SCH (10:00)
[2020-06-20] MEDS: SPIRONOLACTONE 25 MG TABLET PO SCH (10:01)
[2020-06-20] MEDS: PANTOPRAZOLE 40 MG TABLET PO SCH (10:01)
[2020-06-20] MEDS: LOSARTAN 50 MG TABLET PO SCH (10:01)
[2020-06-20] MEDS: LEVOFLOXACIN INJ 750 MG in PREMIX 1 EACH IV SCH (10:01)
[2020-06-20] MEDS ORDERED: DILTIAZEM CD 240 MG CAPSULE PO SCH (10:12)
[2020-06-20] MEDS ORDERED: ALBUTEROL 1.25 MG/3 ML NEB RESP TX PRN (10:35)
[2020-06-20] MEDS ORDERED: methylPREDNISolone SOD SUC 40 MG/1 ML VIAL IV SCH (10:36)
[2020-06-20 16:26] VITALS: BP 189/87
[2020-06-21] MEDS ORDERED: LEVOFLOXACIN 750 MG TABLET PO SCH (09:00)
[2020-06-21] MEDS ORDERED: THEOPHYLLINE ER (24 HR) 400 MG TABLET PO SCH (09:00)
[2020-06-21] MEDS ORDERED: MAGNESIUM OXIDE 400 MG TABLET PO SCH (09:00)
[2020-06-21] MEDS ORDERED: MONTELUKAST 10 MG TABLET PO SCH (09:00)
== END 2020-06-20 17:00 | disposition home or self-care (01) | DRG 194 ==
LOC: N.EDINP 05:12 → N.ED 05:12 → SUATTDRO 07:16 → N.EDINP 09:02 → N.TELES 09:20 → N.ICU 06-18 21:19 → N.TELES 06-19 14:46
PROVIDERS: ADMIT Internal Medicine; ATTEND Internal Medicine

== ENCOUNTER 2022-10-13 03:19 | Inpatient (IN) ==
[2022-10-13] MEDS ORDERED: methylPREDNISolone SOD SUC 125 MG/2 ML VIAL IV STA (03:38)
[2022-10-13] MEDS ORDERED: ALBUTEROL/IPRATROPIUM 3 ML NEB RESP TX STA (03:38)
[2022-10-13 04:01] LABS: Basophils # 0.1 10*3/uL (0.0-0.2); Basophils % 0.5 % (0.0-0.8); Eosinophils % 0.2 % (0.00-10.9); Hematocrit 29.5 VOL% (42.0-52.0); Hemoglobin 8.1 GM/DL (14.0-18.0); Immature Granulocytes % 1.1 %; Immature Granulocytes Absolute 0.14 #; Lymphocytes # 1.4 10*3/uL (1.4-4.0); Lymphocytes % 10.2 % (21.2-54.2); Mean Corpuscular HGB Conc 27.5 GM/DL (32-36); Mean Corpuscular Volume 79.9 FL (87-102); Mean Platelet Volume 8.3 FL (9.6-12.0); Monocytes # 1.7 10*3/uL (0.11-0.8); Monocytes % 13.1 % (1.7-12.7); Neutrophils % 74.9 % (38.7-73.9); Platelet Count 552 T/CUMM (130-400); Red Blood Count 3.69 MC/CUMM (3.8-5.5); Red Cell Distribution Width 19.4 % (9.3-17.3); White Blood Count 13.3 T/CUMM (4-12)
[2022-10-13 04:03] LABS: Alanine Aminotransferase 16 U/L (16-61); Albumin 2.7 G/DL (3.4-5.0); Alkaline Phosphatase 97 U/L (45-117); Aspartate Amino Transferase 16 U/L (0-37); Bilirubin,Total < 0.39 MG/DL (0.20-1.00); Blood Urea Nitrogen 25 MG/DL (7-18); Calcium 9.1 MG/DL (8.5-10.1); Carbon Dioxide 28 MMOL/L (21-32); Chloride 110 MMOL/L (98-107); Glucose 154 MG/DL (74-106); Potassium 3.7 MMOL/L (3.5-5.1); Sodium 143 MMOL/L (136-145); Total Protein 7.6 G/DL (6.4-8.2)
[2022-10-13 04:15] LABS: Arterial Base Excess iSTAT 1 MMOL/L (-2.5-2.5); Arterial Bicarbonate iSTAT 28.9 MMOL/L (20-26); Arterial O2 Saturation iSTAT 95 % (95-100); Arterial PCO2 iSTAT 63 MM HG (35-48); Arterial PO2 iSTAT 91 MM HG (80-95); Arterial Total CO2 iSTAT 31 MMO/L (23-27)
[2022-10-13] MEDS ORDERED: PIPERACILLIN/TAZOBACTAM 3,375 MG in SODIUM CHLORIDE 0.9% 100 ML IV STA (04:38)
[2022-10-13] MEDS ORDERED: hydrALAZINE 20 MG/1 ML VIAL IV PRN (04:55)
[2022-10-13] MEDS ORDERED: ONDANSETRON 4 MG/2 ML VIAL IV PRN (04:55)
[2022-10-13] MEDS ORDERED: ACETAMINOPHEN 325 MG TABLET PO PRN (04:55)
[2022-10-13] MEDS ORDERED: SIMETHICONE CHEW 125 MG TABLET PO PRN (04:55)
[2022-10-13] MEDS ORDERED: LACTATED RINGERS 2,400 ML IV ONE (05:00)
[2022-10-13] MEDS ORDERED: MORPHINE 2 MG/1 ML SYRINGE ONE (05:16)
[2022-10-13] MEDS ORDERED: MORPHINE 2 MG/1 ML SYRINGE IV STA (05:20)
[2022-10-13] MEDS: MORPHINE 2 MG/1 ML SYRINGE IV STA ×2 (05:20→08:15)
[2022-10-13] MEDS ORDERED: GLUCAGON 1 MG VIAL IM PRN (05:26)
[2022-10-13] MEDS ORDERED: DEXTROSE 10% 250 ML BAG IV PRN (05:26)
[2022-10-13 06:29] LABS: Arterial Base Excess iSTAT 2 MMOL/L (-2.5-2.5); Arterial Bicarbonate iSTAT 29.6 MMOL/L (20-26); Arterial O2 Saturation iSTAT 93 % (95-100); Arterial PCO2 iSTAT 60 MM HG (35-48); Arterial PO2 iSTAT 78 MM HG (80-95); Arterial Total CO2 iSTAT 31 MMO/L (23-27); Arterial pH iSTAT 7.305 (7.35-7.45)
[2022-10-13] MEDS ORDERED: ALBUTEROL 2.5 MG/3 ML NEB RESP TX SCH (07:00)
[2022-10-13 08:03] LABS: Bilirubin,Urine Negative (Negative); Blood, Urine Trace mg/dL (Negative); Glucose,Urine (UA) Negative (Negative); Ketones,Urine Negative (Negative); Mucus,Urine Occasional /LPF (Occasional); Nitrite,Urine Negative (Negative); Protein,Urine 100 mg/dL (Negative); Urine Appearance Clear (Clear); Urine Color Yellow (Yellow); Urine Specific Gravity > 1.030 (1.001-1.035); Urine Urobilinogen 0.2 eU/dL (<2.0); Urine pH 5.5 (4.5-8.0)
[2022-10-13] MEDS: INSULIN REGULAR 100 UNIT/ML SUBCUT SCH ×4 (08:20→20:10)
[2022-10-13] MEDS: methylPREDNISolone SOD SUC 40 MG/1 ML VIAL IV SCH ×3 (08:24→20:10)
[2022-10-13] MEDS: DOCUSATE SODIUM 100 MG CAPSULE PO SCH ×2 (08:25→20:10)
[2022-10-13] MEDS: LEVOFLOXACIN INJ 750 MG/150 ML PREMIX IV SCH (08:25)
[2022-10-13] MEDS: PANTOPRAZOLE 40 MG TABLET PO SCH (09:28)
[2022-10-13] MEDS: THEOPHYLLINE ER (24 HR) 400 MG CAPSULE PO SCH (09:28)
[2022-10-13] MEDS: DILTIAZEM CD 180 MG CAPSULE PO SCH (09:28)
[2022-10-13] MEDS: FEBUXOSTAT 80 MG TABLET PO SCH (09:28)
[2022-10-13] MEDS ORDERED: FUROSEMIDE 40 MG/4 ML VIAL IV ONE (09:46)
[2022-10-13] MEDS: cefTRIAXone 1,000 MG in SODIUM CHLORIDE 0.9% 100 ML IV SCH (10:10)
[2022-10-13 11:50] LABS: Arterial Base Excess iSTAT 6 MMOL/L (-2.5-2.5); Arterial Bicarbonate iSTAT 34.2 MMOL/L (20-26); Arterial O2 Saturation iSTAT 96 % (95-100); Arterial PCO2 iSTAT 75 MM HG (35-48); Arterial PO2 iSTAT 102 MM HG (80-95); Arterial Total CO2 iSTAT 36 MMO/L (23-27); Arterial pH iSTAT 7.265 (7.35-7.45)
[2022-10-13] MEDS: carvediloL 25 MG TABLET PO SCH ×2 (12:30→17:05)
[2022-10-13] MEDS: LOSARTAN 50 MG TABLET PO SCH ×2 (12:30→20:09)
[2022-10-13] MEDS: ALBUTEROL/IPRATROPIUM 3 ML NEB RESP TX SCH ×2 (13:20→19:37)
[2022-10-13] MEDS: MORPHINE 2 MG/1 ML SYRINGE IV PRN ×2 (13:33→21:31)
[2022-10-13] MEDS: ENOXAPARIN 40 MG/0.4 ML SYRINGE SUBCUT SCH (20:10)
[2022-10-14] MEDS: ALBUTEROL/IPRATROPIUM 3 ML NEB RESP TX SCH ×7 (00:11→22:41)
[2022-10-14] MEDS: methylPREDNISolone SOD SUC 40 MG/1 ML VIAL IV SCH ×4 (03:33→20:47)
[2022-10-14 04:00] LABS: ABG Base Excess 6.4 MMOL/L (-2.5-2.5); ABG HCO3 30.1 MMOL/L (20-26); ABG Oxygen Saturation 92.3 % (95-100); ABG PH 7.292 (7.35-7.45); ABG PO2 70.4 MM HG (80-95); ABG TCO2 32.7 MMOL/L (23-27)
[2022-10-14] MEDS ORDERED: ALBUTEROL/IPRATROPIUM 3 ML NEB RESP TX ONE (04:00)
[2022-10-14 04:02] LABS: ABG PCO2 71.8 MM HG (35-48)
[2022-10-14 06:43] LABS: Basophils % 0.1 % (0.0-0.8); Hematocrit 28.1 VOL% (42.0-52.0); Hemoglobin 7.9 GM/DL (14.0-18.0); Immature Granulocytes % 1.1 %; Immature Granulocytes Absolute 0.13 #; Lymphocytes # 0.6 10*3/uL (1.4-4.0); Lymphocytes % 5.2 % (21.2-54.2); Mean Corpuscular HGB Conc 28.1 GM/DL (32-36); Mean Corpuscular Volume 80.1 FL (87-102); Mean Platelet Volume 8.4 FL (9.6-12.0); Monocytes # 0.7 10*3/uL (0.11-0.8); Monocytes % 5.9 % (1.7-12.7); NRBC # 0.02 10*3/uL; Neutrophils % 87.7 % (38.7-73.9); Platelet Count 469 T/CUMM (130-400); Red Blood Count 3.51 MC/CUMM (3.8-5.5); White Blood Count 11.4 T/CUMM (4-12)
[2022-10-14 06:46] LABS: Alanine Aminotransferase 14 U/L (16-61); Albumin 2.6 G/DL (3.4-5.0); Alkaline Phosphatase 85 U/L (45-117); Aspartate Amino Transferase 12 U/L (0-37); Bilirubin,Total < 0.39 MG/DL (0.20-1.00); Blood Urea Nitrogen 36 MG/DL (7-18); Calcium 9.7 MG/DL (8.5-10.1); Carbon Dioxide 34 MMOL/L (21-32); Chloride 105 MMOL/L (98-107); Glucose 176 MG/DL (74-106); Osmolality,Calculated 290.4 MOS/KG (273-304); Potassium 4.3 MMOL/L (3.5-5.1); Sodium 140 MMOL/L (136-145); Total Protein 7.2 G/DL (6.4-8.2)
[2022-10-14] MEDS: LEVOFLOXACIN INJ 750 MG/150 ML PREMIX IV SCH (07:25)
[2022-10-14] MEDS: INSULIN REGULAR 100 UNIT/ML SUBCUT SCH ×4 (07:25→20:46)
[2022-10-14] MEDS: DOCUSATE SODIUM 100 MG CAPSULE PO SCH ×2 (08:25→20:46)
[2022-10-14] MEDS: LOSARTAN 50 MG TABLET PO SCH ×2 (08:35→20:46)
[2022-10-14] MEDS: DILTIAZEM CD 180 MG CAPSULE PO SCH (08:35)
[2022-10-14] MEDS: ROSUVASTATIN 20 MG TABLET PO SCH (08:35)
[2022-10-14] MEDS: THEOPHYLLINE ER (24 HR) 400 MG CAPSULE PO SCH (08:35)
[2022-10-14] MEDS: PANTOPRAZOLE 40 MG TABLET PO SCH (08:35)
[2022-10-14] MEDS: FEBUXOSTAT 80 MG TABLET PO SCH (08:35)
[2022-10-14] MEDS: carvediloL 25 MG TABLET PO SCH ×2 (08:35→16:40)
[2022-10-14] MEDS: cefTRIAXone 1,000 MG in SODIUM CHLORIDE 0.9% 100 ML IV SCH (08:55)
[2022-10-14] MEDS: NON-FORMULARY MEDICATION (Fluticasone-Umeclidin-Vilanter [Trelegy Ellipta] 100-62.5-25 mcg INH SCH (09:00)
[2022-10-14] MEDS ORDERED: FUROSEMIDE 40 MG/4 ML VIAL IV SCH (13:36)
[2022-10-14] MEDS: ENOXAPARIN 40 MG/0.4 ML SYRINGE SUBCUT SCH (20:46)
[2022-10-14] MEDS: OLANZapine 5 MG TABLET PO SCH (20:47)
[2022-10-15] MEDS: methylPREDNISolone SOD SUC 40 MG/1 ML VIAL IV SCH ×4 (02:49→20:54)
[2022-10-15] MEDS: ALBUTEROL/IPRATROPIUM 3 ML NEB RESP TX SCH ×6 (03:00→23:30)
[2022-10-15 03:23] VITALS: BP 154/75
[2022-10-15 05:14] LABS: Alanine Aminotransferase 13 U/L (16-61); Albumin 2.4 G/DL (3.4-5.0); Alkaline Phosphatase 76 U/L (45-117); Aspartate Amino Transferase 19 U/L (0-37); Bilirubin,Total < 0.39 MG/DL (0.20-1.00); Blood Urea Nitrogen 45 MG/DL (7-18); Calcium 9.3 MG/DL (8.5-10.1); Carbon Dioxide 29 MMOL/L (21-32); Chloride 105 MMOL/L (98-107); Glucose 180 MG/DL (74-106); Osmolality,Calculated 293.5 MOS/KG (273-304); Potassium 4.2 MMOL/L (3.5-5.1); Sodium 139 MMOL/L (136-145); Total Protein 6.8 G/DL (6.4-8.2)
[2022-10-15 06:14] LABS: Basophils % 0.1 % (0.0-0.8); Hematocrit 27.7 VOL% (42.0-52.0); Hemoglobin 7.9 GM/DL (14.0-18.0); Immature Granulocytes Absolute 0.14 #; Lymphocytes # 0.6 10*3/uL (1.4-4.0); Lymphocytes % 4.1 % (21.2-54.2); Mean Corpuscular HGB Conc 28.5 GM/DL (32-36); Mean Corpuscular Volume 79.1 FL (87-102); Mean Platelet Volume 8.3 FL (9.6-12.0); Monocytes # 0.6 10*3/uL (0.11-0.8); Monocytes % 4.2 % (1.7-12.7); Neutrophils % 90.6 % (38.7-73.9); Platelet Count 486 T/CUMM (130-400); Red Cell Distribution Width 18.8 % (9.3-17.3); White Blood Count 13.5 T/CUMM (4-12)
[2022-10-15 06:40] LABS: Hypochromia Slight; Lymphocytes 6 % (20-55); Microcytosis Slight; Platelet Estimate Adequate; Total Cells Counted 100
[2022-10-15] MEDS: INSULIN REGULAR 100 UNIT/ML SUBCUT SCH ×4 (09:06→20:57)
[2022-10-15] MEDS: cefTRIAXone 1,000 MG in SODIUM CHLORIDE 0.9% 100 ML IV SCH (09:07)
[2022-10-15] MEDS: THEOPHYLLINE ER (24 HR) 400 MG CAPSULE PO SCH (09:08)
[2022-10-15] MEDS: FEBUXOSTAT 80 MG TABLET PO SCH (09:08)
[2022-10-15] MEDS: DOCUSATE SODIUM 100 MG CAPSULE PO SCH ×2 (09:08→20:53)
[2022-10-15] MEDS: carvediloL 25 MG TABLET PO SCH ×2 (09:09→17:15)
[2022-10-15] MEDS: ROSUVASTATIN 20 MG TABLET PO SCH (09:09)
[2022-10-15] MEDS: LOSARTAN 50 MG TABLET PO SCH ×2 (09:09→20:53)
[2022-10-15] MEDS: DILTIAZEM CD 180 MG CAPSULE PO SCH (09:09)
[2022-10-15] MEDS: PANTOPRAZOLE 40 MG TABLET PO SCH (09:09)
[2022-10-15] MEDS: LEVOFLOXACIN 500 MG TABLET PO SCH (09:10)
[2022-10-15] MEDS: NON-FORMULARY MEDICATION (Fluticasone-Umeclidin-Vilanter [Trelegy Ellipta] 100-62.5-25 mcg INH SCH (09:13)
[2022-10-15 10:34] LABS: INR 0.9; PT Patient Result 10.2 SECS (10.1-12.1)
[2022-10-15] MEDS: NICOTINE 21 MG/24 HR PATCH TRANSDERM SCH (17:13)
[2022-10-15] MEDS: OLANZapine 5 MG TABLET PO SCH (20:53)
[2022-10-15] MEDS: ENOXAPARIN 40 MG/0.4 ML SYRINGE SUBCUT SCH (20:54)
[2022-10-16] MEDS: ALBUTEROL/IPRATROPIUM 3 ML NEB RESP TX SCH ×6 (03:30→23:20)
[2022-10-16] MEDS: methylPREDNISolone SOD SUC 40 MG/1 ML VIAL IV SCH ×4 (03:48→21:32)
[2022-10-16 05:23] LABS: Calcium 8.8 MG/DL (8.5-10.1); Osmolality,Calculated 303.7 MOS/KG (273-304)
[2022-10-16 05:35] LABS: Basophils % 0.1 % (0.0-0.8); Hematocrit 27.4 VOL% (42.0-52.0); Hemoglobin 7.8 GM/DL (14.0-18.0); Immature Granulocytes % 0.9 %; Immature Granulocytes Absolute 0.11 #; Lymphocytes # 0.5 10*3/uL (1.4-4.0); Lymphocytes % 4.2 % (21.2-54.2); Mean Corpuscular HGB Conc 28.5 GM/DL (32-36); Mean Corpuscular Volume 78.3 FL (87-102); Mean Platelet Volume 8.3 FL (9.6-12.0); Monocytes # 0.5 10*3/uL (0.11-0.8); Monocytes % 3.9 % (1.7-12.7); NRBC # 0.02 10*3/uL; Neutrophils % 90.9 % (38.7-73.9); Platelet Count 463 T/CUMM (130-400); Red Cell Distribution Width 18.7 % (9.3-17.3); White Blood Count 12.7 T/CUMM (4-12)
[2022-10-16 05:41] LABS: Lymphocytes 7 % (20-55); Total Cells Counted 100
[2022-10-16 05:42] LABS: Hypochromia 1+; Microcytosis 1+; Ovalocytes Slight
[2022-10-16 05:43] LABS: Platelet Estimate Increased
[2022-10-16] MEDS: INSULIN REGULAR 100 UNIT/ML SUBCUT SCH ×4 (07:53→21:31)
[2022-10-16] MEDS: LOSARTAN 50 MG TABLET PO SCH ×2 (09:00→21:31)
[2022-10-16] MEDS: ROSUVASTATIN 20 MG TABLET PO SCH (09:00)
[2022-10-16] MEDS: THEOPHYLLINE ER (24 HR) 400 MG CAPSULE PO SCH (09:00)
[2022-10-16] MEDS: NICOTINE 21 MG/24 HR PATCH TRANSDERM SCH (09:00)
[2022-10-16] MEDS: PANTOPRAZOLE 40 MG TABLET PO SCH (09:00)
[2022-10-16] MEDS: NON-FORMULARY MEDICATION (Fluticasone-Umeclidin-Vilanter [Trelegy Ellipta] 100-62.5-25 mcg INH SCH (09:00)
[2022-10-16] MEDS: DOCUSATE SODIUM 100 MG CAPSULE PO SCH ×2 (09:00→21:31)
[2022-10-16] MEDS: DILTIAZEM CD 180 MG CAPSULE PO SCH (09:00)
[2022-10-16] MEDS: LEVOFLOXACIN 500 MG TABLET PO SCH (09:00)
[2022-10-16] MEDS: carvediloL 25 MG TABLET PO SCH ×2 (09:00→16:22)
[2022-10-16] MEDS: FEBUXOSTAT 80 MG TABLET PO SCH (09:00)
[2022-10-16] MEDS: cefTRIAXone 1,000 MG in SODIUM CHLORIDE 0.9% 100 ML IV SCH (09:30)
[2022-10-16 17:33] LABS: Glucose,Pleural Fluid 231 MG/DL; Total Protein,Pleural Fluid 4.8 G/DL
[2022-10-16 18:05] LABS: RBC,Pleural Fluid > 100000 T/CUMM
[2022-10-16 18:14] LABS: Eosinophils,Pleural Fluid 2 %; Lymphocytes,Pleural Fluid 77 %; Monocytes,Pleural Fluid 4 %; Neutrophils,Pleural Fluid 16 %
[2022-10-16] MEDS: ENOXAPARIN 40 MG/0.4 ML SYRINGE SUBCUT SCH (21:30)
[2022-10-16] MEDS: OLANZapine 5 MG TABLET PO SCH (21:31)
[2022-10-17] MEDS: ALBUTEROL/IPRATROPIUM 3 ML NEB RESP TX SCH ×6 (03:15→23:10)
[2022-10-17] MEDS: methylPREDNISolone SOD SUC 40 MG/1 ML VIAL IV SCH ×4 (03:20→21:16)
[2022-10-17 06:12] LABS: Calcium 9.2 MG/DL (8.5-10.1); Osmolality,Calculated 308.8 MOS/KG (273-304); Potassium 4.1 MMOL/L (3.5-5.1)
[2022-10-17 06:42] LABS: Basophils % 0.1 % (0.0-0.8); Hematocrit 27.8 VOL% (42.0-52.0); Immature Granulocytes Absolute 0.11 #; Lymphocytes # 0.4 10*3/uL (1.4-4.0); Lymphocytes % 3.5 % (21.2-54.2); Mean Corpuscular HGB Conc 28.4 GM/DL (32-36); Mean Corpuscular Volume 78.1 FL (87-102); Mean Platelet Volume 8.4 FL (9.6-12.0); Monocytes # 0.5 10*3/uL (0.11-0.8); Monocytes % 4.9 % (1.7-12.7); Neutrophils % 90.5 % (38.7-73.9); Platelet Count 434 T/CUMM (130-400); Red Blood Count 3.56 MC/CUMM (3.8-5.5); Red Cell Distribution Width 18.6 % (9.3-17.3); White Blood Count 11.1 T/CUMM (4-12)
[2022-10-17 06:44] LABS: Hemoglobin 7.9 GM/DL (14.0-18.0)
[2022-10-17 06:46] LABS: Hypochromia 1+; Lymphocytes 1 % (20-55); Microcytosis 1+; Platelet Estimate Adequate; Total Cells Counted 100
[2022-10-17] MEDS: INSULIN REGULAR 100 UNIT/ML SUBCUT SCH ×5 (08:05→21:15)
[2022-10-17] MEDS: THEOPHYLLINE ER (24 HR) 400 MG CAPSULE PO SCH (09:20)
[2022-10-17] MEDS: carvediloL 25 MG TABLET PO SCH ×2 (09:20→16:13)
[2022-10-17] MEDS: DILTIAZEM CD 180 MG CAPSULE PO SCH (09:20)
[2022-10-17] MEDS: ROSUVASTATIN 20 MG TABLET PO SCH (09:20)
[2022-10-17] MEDS: FEBUXOSTAT 80 MG TABLET PO SCH (09:20)
[2022-10-17] MEDS: PANTOPRAZOLE 40 MG TABLET PO SCH (09:21)
[2022-10-17] MEDS: LOSARTAN 50 MG TABLET PO SCH ×2 (09:21→21:15)
[2022-10-17] MEDS: LEVOFLOXACIN 500 MG TABLET PO SCH (09:21)
[2022-10-17] MEDS: DOCUSATE SODIUM 100 MG CAPSULE PO SCH ×2 (09:21→21:15)
[2022-10-17] MEDS: NICOTINE 21 MG/24 HR PATCH TRANSDERM SCH (09:22)
[2022-10-17] MEDS: NON-FORMULARY MEDICATION (Fluticasone-Umeclidin-Vilanter [Trelegy Ellipta] 100-62.5-25 mcg INH SCH (09:23)
[2022-10-17] MEDS: cefTRIAXone 1,000 MG in SODIUM CHLORIDE 0.9% 100 ML IV SCH (09:23)
[2022-10-17] MEDS ORDERED: FUROSEMIDE 40 MG/4 ML VIAL IV ONE (09:47)
[2022-10-17] MEDS: ENOXAPARIN 40 MG/0.4 ML SYRINGE SUBCUT SCH (21:15)
[2022-10-17] MEDS: OLANZapine 5 MG TABLET PO SCH (21:16)
[2022-10-18] MEDS: methylPREDNISolone SOD SUC 40 MG/1 ML VIAL IV SCH ×4 (03:05→20:37)
[2022-10-18] MEDS: ALBUTEROL/IPRATROPIUM 3 ML NEB RESP TX SCH ×6 (03:25→23:55)
[2022-10-18 04:42] LABS: Basophils % 0.1 % (0.0-0.8); Hematocrit 27.1 VOL% (42.0-52.0); Hemoglobin 7.7 GM/DL (14.0-18.0); Immature Granulocytes % 0.9 %; Immature Granulocytes Absolute 0.11 #; Lymphocytes # 0.6 10*3/uL (1.4-4.0); Lymphocytes % 4.4 % (21.2-54.2); Mean Corpuscular HGB Conc 28.4 GM/DL (32-36); Mean Corpuscular Volume 77.9 FL (87-102); Mean Platelet Volume 8.2 FL (9.6-12.0); Monocytes # 1.4 10*3/uL (0.11-0.8); Monocytes % 10.9 % (1.7-12.7); NRBC # 0.02 10*3/uL; Neutrophils % 83.7 % (38.7-73.9); Platelet Count 391 T/CUMM (130-400); Red Blood Count 3.48 MC/CUMM (3.8-5.5); Red Cell Distribution Width 18.4 % (9.3-17.3); White Blood Count 12.6 T/CUMM (4-12)
[2022-10-18 05:00] LABS: Calcium 8.9 MG/DL (8.5-10.1); Osmolality,Calculated 302.6 MOS/KG (273-304)
[2022-10-18 05:20] LABS: Lymphocytes 5 % (20-55); Platelet Estimate Adequate; Total Cells Counted 100
[2022-10-18 05:21] LABS: Hypochromia 1+; Microcytosis 1+
[2022-10-18] MEDS: ROSUVASTATIN 20 MG TABLET PO SCH (09:18)
[2022-10-18] MEDS: CLOPIDOGREL 75 MG TABLET PO SCH (09:18)
[2022-10-18] MEDS: FEBUXOSTAT 80 MG TABLET PO SCH (09:19)
[2022-10-18] MEDS: DILTIAZEM CD 180 MG CAPSULE PO SCH (09:19)
[2022-10-18] MEDS: carvediloL 25 MG TABLET PO SCH ×2 (09:19→16:30)
[2022-10-18] MEDS: LOSARTAN 50 MG TABLET PO SCH ×2 (09:19→20:37)
[2022-10-18] MEDS: LEVOFLOXACIN 500 MG TABLET PO SCH (09:19)
[2022-10-18] MEDS: THEOPHYLLINE ER (24 HR) 400 MG CAPSULE PO SCH (09:20)
[2022-10-18] MEDS: DOCUSATE SODIUM 100 MG CAPSULE PO SCH ×2 (09:20→20:37)
[2022-10-18] MEDS: PANTOPRAZOLE 40 MG TABLET PO SCH (09:20)
[2022-10-18] MEDS: cefTRIAXone 1,000 MG in SODIUM CHLORIDE 0.9% 100 ML IV SCH (09:21)
[2022-10-18] MEDS: INSULIN REGULAR 100 UNIT/ML SUBCUT SCH ×4 (09:22→20:38)
[2022-10-18] MEDS: NICOTINE 21 MG/24 HR PATCH TRANSDERM SCH (09:22)
[2022-10-18] MEDS: NON-FORMULARY MEDICATION (Fluticasone-Umeclidin-Vilanter [Trelegy Ellipta] 100-62.5-25 mcg INH SCH (09:23)
[2022-10-18] MEDS: ENOXAPARIN 40 MG/0.4 ML SYRINGE SUBCUT SCH (20:37)
[2022-10-18] MEDS: OLANZapine 5 MG TABLET PO SCH (20:37)
[2022-10-19 03:41] LABS: Hematocrit 27.6 VOL% (42.0-52.0); Immature Granulocytes % 1.2 %; Immature Granulocytes Absolute 0.14 #; Lymphocytes # 0.4 10*3/uL (1.4-4.0); Lymphocytes % 3.7 % (21.2-54.2); Mean Corpuscular Volume 77.1 FL (87-102); Mean Platelet Volume 8.4 FL (9.6-12.0); Monocytes # 0.8 10*3/uL (0.11-0.8); Monocytes % 6.7 % (1.7-12.7); NRBC # 0.02 10*3/uL; Neutrophils % 88.4 % (38.7-73.9); Platelet Count 404 T/CUMM (130-400); Red Blood Count 3.58 MC/CUMM (3.8-5.5); Red Cell Distribution Width 18.6 % (9.3-17.3); White Blood Count 11.6 T/CUMM (4-12)
[2022-10-19 03:58] LABS: Calcium 8.9 MG/DL (8.5-10.1); Osmolality,Calculated 306.8 MOS/KG (273-304); Potassium 4.2 MMOL/L (3.5-5.1)
[2022-10-19 04:03] LABS: Hypochromia 1+; Lymphocytes 2 % (20-55); Microcytosis 1+; Platelet Estimate Adequate; Total Cells Counted 100
[2022-10-19] MEDS: ALBUTEROL/IPRATROPIUM 3 ML NEB RESP TX SCH ×3 (04:09→11:10)
[2022-10-19] MEDS: THEOPHYLLINE ER (24 HR) 400 MG CAPSULE PO SCH (08:27)
[2022-10-19] MEDS: FEBUXOSTAT 80 MG TABLET PO SCH (08:27)
[2022-10-19] MEDS: ROSUVASTATIN 20 MG TABLET PO SCH (08:28)
[2022-10-19] MEDS: LEVOFLOXACIN 500 MG TABLET PO SCH (08:28)
[2022-10-19] MEDS: PANTOPRAZOLE 40 MG TABLET PO SCH (08:28)
[2022-10-19] MEDS: DILTIAZEM CD 180 MG CAPSULE PO SCH (08:28)
[2022-10-19] MEDS: DOCUSATE SODIUM 100 MG CAPSULE PO SCH (08:28)
[2022-10-19] MEDS: carvediloL 25 MG TABLET PO SCH (08:28)
[2022-10-19] MEDS: CLOPIDOGREL 75 MG TABLET PO SCH (08:28)
[2022-10-19] MEDS: LOSARTAN 50 MG TABLET PO SCH (08:28)
[2022-10-19] MEDS: INSULIN REGULAR 100 UNIT/ML SUBCUT SCH (08:29)
[2022-10-19] MEDS: methylPREDNISolone SOD SUC 40 MG/1 ML VIAL IV SCH (08:29)
[2022-10-19] MEDS: NON-FORMULARY MEDICATION (Fluticasone-Umeclidin-Vilanter [Trelegy Ellipta] 100-62.5-25 mcg INH SCH (08:32)
[2022-10-19] MEDS: NICOTINE 21 MG/24 HR PATCH TRANSDERM SCH (08:33)
[2022-10-19] MEDS ORDERED: metFORMIN 500 MG TABLET PO SCH (09:00)
[2022-10-19] MEDS ORDERED: SPIRONOLACTONE 25 MG TABLET PO SCH (09:00)
[2022-10-19] MEDS ORDERED: predniSONE 10 MG TABLET PO SCH (09:00)
[2022-10-19] MEDS: cefTRIAXone 1,000 MG in SODIUM CHLORIDE 0.9% 100 ML IV SCH (09:24)
[2022-10-20] MEDS ORDERED: predniSONE 20 MG TABLET PO SCH (09:00)
== END 2022-10-19 12:00 | disposition home or self-care (01) | DRG 871 ==
LOC: SUATTDRO → N.ED 03:19 → N.CC 06:07 → SUATTDRO 06:07 → N.CC 07:58
PROVIDERS: ADMIT Internal Medicine; ATTEND Internal Medicine

== ENCOUNTER 2022-10-30 16:02 | Inpatient (IN) ==
[2022-10-30 17:23] LABS: Basophils % 0.1 % (0.0-0.8); Eosinophils # 0.2 10*3/uL (0.0-0.87); Eosinophils % 2.3 % (0.00-10.9); Hematocrit 27.2 VOL% (42.0-52.0); Hemoglobin 7.8 GM/DL (14.0-18.0); Immature Granulocytes % 0.7 %; Immature Granulocytes Absolute 0.07 #; Lymphocytes # 0.9 10*3/uL (1.4-4.0); Lymphocytes % 8.9 % (21.2-54.2); Mean Corpuscular HGB Conc 28.7 GM/DL (32-36); Mean Corpuscular Volume 77.7 FL (87-102); Mean Platelet Volume 8.6 FL (9.6-12.0); Monocytes # 0.9 10*3/uL (0.11-0.8); Monocytes % 8.5 % (1.7-12.7); Neutrophils % 79.5 % (38.7-73.9); Platelet Count 255 T/CUMM (130-400); Red Cell Distribution Width 20.7 % (9.3-17.3); White Blood Count 10.5 T/CUMM (4-12)
[2022-10-30 17:27] LABS: Alanine Aminotransferase 20 U/L (16-61); Albumin 2.4 G/DL (3.4-5.0); Alkaline Phosphatase 75 U/L (45-117); Aspartate Amino Transferase 22 U/L (0-37); Bilirubin,Total < 0.39 MG/DL (0.20-1.00); Blood Urea Nitrogen 15 MG/DL (7-18); Calcium 8.5 MG/DL (8.5-10.1); Carbon Dioxide 34 MMOL/L (21-32); Chloride 110 MMOL/L (98-107); Glucose 110 MG/DL (74-106); Osmolality,Calculated 289.7 MOS/KG (273-304); Potassium 3.8 MMOL/L (3.5-5.1); Sodium 145 MMOL/L (136-145); Total Protein 6.3 G/DL (6.4-8.2)
[2022-10-30 17:28] LABS: INR 0.9; PT Patient Result 10.3 SECS (10.1-12.1); Partial Thromboplastin Time 23.9 SECS (23.7-32.9)
[2022-10-30] MEDS ORDERED: FUROSEMIDE 40 MG/4 ML VIAL IV ONE (20:02)
[2022-10-30] MEDS ORDERED: LACTULOSE 20 GM/30 ML UDCUP PO PRN (20:08)
[2022-10-30] MEDS ORDERED: DEXTROSE 10% 250 ML BAG IV PRN (20:08)
[2022-10-30] MEDS ORDERED: ONDANSETRON 4 MG/2 ML VIAL IV PRN (20:08)
[2022-10-30] MEDS ORDERED: ACETAMINOPHEN 325 MG TABLET PO PRN (20:08)
[2022-10-30] MEDS ORDERED: GLUCAGON 1 MG VIAL IM PRN (20:08)
[2022-10-30] MEDS ORDERED: ZALEPLON 5 MG CAPSULE PO PRN (20:08)
[2022-10-30] MEDS ORDERED: DOCUSATE SODIUM 100 MG CAPSULE PO PRN (20:08)
[2022-10-30] MEDS ORDERED: guaiFENesin/DM ER 600-30 MG TABLET PO PRN (20:08)
[2022-10-30] MEDS ORDERED: hydrALAZINE 20 MG/1 ML VIAL IV PRN (20:08)
[2022-10-30 21:47] LABS: Anisocytosis 1+
[2022-10-30 21:48] LABS: Hypochromia 1+; Microcytosis 1+; Platelet Estimate Adequate
[2022-10-30] MEDS: carvediloL 25 MG TABLET PO SCH (21:48)
[2022-10-30] MEDS: LEVOFLOXACIN INJ 500 MG/100 ML PREMIX IV SCH (21:48)
[2022-10-30] MEDS: INSULIN REGULAR 100 UNIT/ML SUBCUT SCH (21:49)
[2022-10-30] MEDS: ENOXAPARIN 40 MG/0.4 ML SYRINGE SUBCUT SCH (21:49)
[2022-10-30] MEDS: LOSARTAN 50 MG TABLET PO SCH (21:50)
[2022-10-31] MEDS: ALBUTEROL/IPRATROPIUM 3 ML NEB RESP TX SCH ×4 (00:19→19:41)
[2022-10-31 03:31] LABS: ABG Base Excess 10.9 MMOL/L (-2.5-2.5); ABG HCO3 34.6 MMOL/L (20-26); ABG Oxygen Saturation 96.3 % (95-100); ABG PCO2 56.7 MM HG (35-48); ABG PO2 83.3 MM HG (80-95)
[2022-10-31 06:11] LABS: Basophils % 0.1 % (0.0-0.8); Eosinophils # 0.2 10*3/uL (0.0-0.87); Eosinophils % 2.3 % (0.00-10.9); Hematocrit 24.9 VOL% (42.0-52.0); Hemoglobin 6.9 GM/DL (14.0-18.0); Immature Granulocytes % 0.2 %; Immature Granulocytes Absolute 0.02 #; Lymphocytes % 11.7 % (21.2-54.2); Mean Corpuscular HGB Conc 27.7 GM/DL (32-36); Mean Platelet Volume 8.8 FL (9.6-12.0); Monocytes # 0.8 10*3/uL (0.11-0.8); Monocytes % 9.8 % (1.7-12.7); Neutrophils % 75.9 % (38.7-73.9); Platelet Count 223 T/CUMM (130-400); Red Blood Count 3.15 MC/CUMM (3.8-5.5); Red Cell Distribution Width 20.5 % (9.3-17.3); White Blood Count 8.4 T/CUMM (4-12)
[2022-10-31 06:22] LABS: % Iron Saturation 9.2 % (18-50); Ferritin 57.6 ng/mL (26-388)
[2022-10-31 06:29] LABS: Folate 14.57 NG/ML (5.38-24.0); Vitamin B12 423 PG/ML (211-911)
[2022-10-31 07:01] LABS: Calcium 8.8 MG/DL (8.5-10.1); Potassium 3.5 MMOL/L (3.5-5.1); Thyroid Stimulating Hormone 1.37 uIU/ml (0.358-3.74)
[2022-10-31] MEDS ORDERED: SODIUM CHLORIDE 0.9% 1,000 ML IV PRN (07:18)
[2022-10-31] MEDS ORDERED: MAGNESIUM SULF RIDER 2 GM/50 ML PREMIX IV ONE (07:19)
[2022-10-31 07:29] LABS: Sedimentation Rate-Westergren 80 MM/HR (0-20)
[2022-10-31] MEDS: INSULIN REGULAR 100 UNIT/ML SUBCUT SCH ×4 (07:37→21:47)
[2022-10-31] MEDS: THEOPHYLLINE ER (24 HR) 400 MG TABLET PO SCH (08:01)
[2022-10-31] MEDS: ROSUVASTATIN 20 MG TABLET PO SCH (08:01)
[2022-10-31] MEDS: PANTOPRAZOLE 40 MG TABLET PO SCH (08:01)
[2022-10-31] MEDS: predniSONE 20 MG TABLET PO SCH (08:01)
[2022-10-31] MEDS: FUROSEMIDE 40 MG/4 ML VIAL IV SCH ×2 (08:01→16:43)
[2022-10-31] MEDS: carvediloL 25 MG TABLET PO SCH ×2 (08:01→16:43)
[2022-10-31] MEDS: LOSARTAN 50 MG TABLET PO SCH ×2 (08:02→21:46)
[2022-10-31] MEDS: DILTIAZEM CD 180 MG CAPSULE PO SCH (08:02)
[2022-10-31] MEDS: SPIRONOLACTONE 25 MG TABLET PO SCH (08:02)
[2022-10-31 10:11] LABS: Hemoglobin A1 (Alkaline) 98.3 % (96.5-98.5); Hemoglobin A2 (Alkaline) 1.7 % (1.5-3.5)
[2022-10-31 19:18] LABS: Hematocrit 26.6 VOL% (42.0-52.0)
[2022-10-31] MEDS: ENOXAPARIN 40 MG/0.4 ML SYRINGE SUBCUT SCH (21:46)
[2022-10-31] MEDS: LEVOFLOXACIN INJ 500 MG/100 ML PREMIX IV SCH (21:47)
[2022-11-01] MEDS: ALBUTEROL/IPRATROPIUM 3 ML NEB RESP TX SCH ×2 (00:20→06:47)
[2022-11-01 04:22] LABS: Basophils % 0.1 % (0.0-0.8); Hematocrit 25.9 VOL% (42.0-52.0); Hemoglobin 7.6 GM/DL (14.0-18.0); Immature Granulocytes % 0.6 %; Immature Granulocytes Absolute 0.06 #; Lymphocytes # 0.8 10*3/uL (1.4-4.0); Lymphocytes % 8.9 % (21.2-54.2); Mean Corpuscular HGB Conc 29.3 GM/DL (32-36); Mean Corpuscular Volume 79.4 FL (87-102); Mean Platelet Volume 8.6 FL (9.6-12.0); Monocytes % 10.3 % (1.7-12.7); Neutrophils % 80.1 % (38.7-73.9); Platelet Count 184 T/CUMM (130-400); Red Blood Count 3.26 MC/CUMM (3.8-5.5); Red Cell Distribution Width 19.6 % (9.3-17.3); White Blood Count 9.4 T/CUMM (4-12)
[2022-11-01 04:36] LABS: Calcium 8.6 MG/DL (8.5-10.1)
[2022-11-01 04:39] LABS: Potassium 3.6 MMOL/L (3.5-5.1)
[2022-11-01] MEDS: INSULIN REGULAR 100 UNIT/ML SUBCUT SCH ×2 (07:09→11:17)
[2022-11-01] MEDS: THEOPHYLLINE ER (24 HR) 400 MG TABLET PO SCH (08:42)
[2022-11-01] MEDS: DILTIAZEM CD 180 MG CAPSULE PO SCH (08:42)
[2022-11-01] MEDS: predniSONE 20 MG TABLET PO SCH (08:43)
[2022-11-01] MEDS: PANTOPRAZOLE 40 MG TABLET PO SCH (08:43)
[2022-11-01] MEDS: ROSUVASTATIN 20 MG TABLET PO SCH (08:43)
[2022-11-01] MEDS: SPIRONOLACTONE 25 MG TABLET PO SCH (08:43)
[2022-11-01] MEDS: FUROSEMIDE 40 MG/4 ML VIAL IV SCH (08:43)
[2022-11-01] MEDS: carvediloL 25 MG TABLET PO SCH (08:43)
[2022-11-01] MEDS: LOSARTAN 50 MG TABLET PO SCH (08:43)
[2022-11-01] MEDS ORDERED: MAGNESIUM OXIDE 400 MG TABLET PO SCH (09:00)
[2022-11-01] MEDS ORDERED: NICOTINE 21 MG/24 HR PATCH TRANSDERM SCH (09:00)
[2022-11-01] MEDS ORDERED: LIDOCAINE 2% TOP JELLY 20 ML VIAL INTRAURETH ONE (09:02)
[2022-11-01 10:01] LABS: Lymphocytes,Pleural Fluid 94 %; Monocytes,Pleural Fluid 1 %; Neutrophils,Pleural Fluid 5 %; RBC,Pleural Fluid > 100000 T/CUMM
[2022-11-01 11:14] LABS: Amylase,Body Fluid 132 U/L; Glucose,Pleural Fluid 152 MG/DL; LDH,Body Fluid 414 U/L; Total Protein,Body Fluid 3.3 G/DL
[2022-11-01 11:15] VITALS: BP 119/64
== END 2022-11-01 14:10 | disposition home or self-care (01) | DRG 186 ==
LOC: N.EDINP 16:02 → N.ED 16:02 → N.EDINP 19:55 → N.2W 19:59
PROVIDERS: ADMIT Internal Medicine Geriatric Medicine; ATTEND Internal Medicine Geriatric Medicine